=== PATIENT | female | born 1990 | race Caucasian/White ===

== ENCOUNTER → 2019-08-03 | Outpatient (CLI) | payer MEDICAID ==
--- NOTE | 2019-08-03 11:58 | Diagnostic Imaging Report ---
INDICATION: survey. TECHNIQUE: Multiple real-time grayscale images were obtained over the gravid uterus. COMPARISON: None. FINDINGS: There is a single live fetus in a breech presentation. heart rate was recorded at 132 BPM. Placenta is posterior. Amniotic fluid index is 14.5 cm. survey demonstrates kidneys, bladder, and stomach to be unremarkable. brain is unremarkable. There is a four-chamber heart. There is a three-vessel cord with normal insertion. spine is unremarkable. Biometrical measurements are as follows: Biparietal 5.25 cm, age 20 weeks 0 days. Head circumference 19.68 cm, age 22 weeks 2 days. Abdominal circumference 16.23 cm, age 21 weeks 3 days. Femur length 3.63 cm, age 21 weeks 4 days. Sonographic estimate age: 21 weeks 6 days. Sonographic estimated date of delivery: 12/08/2019. Estimated Weight: 427 gm (+/- 62 gm). LMP percentile: 89%. heart rate: 132 beats per minute. number: 1 of 1. IMPRESSION: Single live IUP at 21 weeks 6 days gestational age. The estimated date of confinement sonographically is 12/08/2019. Dictated by: Dictated on workstation # [id number]
== END ==
LOC: RAD 10:03
PROVIDERS: ATTEND Nurse Practitioner Women's Health
DX: Z34.92 Encounter for supervision of normal pregnancy, unspecified, second trimester (principal); Z3A.21 21 weeks gestation of pregnancy
CPT/HCPCS: 76805

== ENCOUNTER 2019-11-25 11:45 | Inpatient (IN) | payer MEDICAID ==
[~2019-11-25] VITALS: Ht 165.1 cm; Wt 88.9 kg
[2019-11-25] VITALS (13 sets, daily range): BP systolic 117–135; BP diastolic 61–90
--- NOTE | 2019-11-25 12:05 | NUR ---
OCTAVIANO QUINTANA presented to unit via AMBULATORY, accompanied by MOTHER IN LAW, FOR INDUCTION OF LABOR DUE TO PRE-ECLAMPSIA. OCTAVIANO QUINTANA weighed, gowned, voided, and to bed. EFHM and TOCO applied, VS taken. OCTAVIANO QUINTANA oriented to bed controls, call light, TV, heat, and A/C controls.
[2019-11-25] MEDS ORDERED: D5 LR IV SOLUTION 1,000 ML IV ONE (12:27)
[2019-11-25] MEDS ORDERED: MINERAL OIL CONCENTRATE 99.9% 15 ML UDC TOP PRN (12:45)
[2019-11-25] MEDS: D5 LR IV SOLUTION 1,000 ML IV SCH ×2 (12:45→20:30)
--- NOTE | 2019-11-25 13:25 | History & Physical-OB ---
OB - Chief Complaint & HPI Date/Time Date of Admission: Date of Admission: Nov 25, 2019 at 11:45 Date seen by a Provider: Nov 25, 2019 Time Seen by a Provider: 13:21 Chief Complaint/History OB-Reason for Admission/Chief: Induction of Labor (1) Hx : 1 Hx Para: 0 Expected Date of Delivery: Nov 27, 2019 Gestational Age in Weeks: 37 Gestational Age in Days: 4 Indication for induction: medical complication Other reason for admission: Patient seen yesterday in office 3 lbs weight gain in one week, and BP 150/100. Urine protein/cr ratio came back .6 today. Patient notified recommendation for delivery due to preE. Admission Nurse Assessment Rev: Yes History of Labs A neg Antibody neg RI RPR NR HBsAg nR HIV NR GC (pos) but test of cure was neg 2 months later GBS neg Allergies and Home Medications Allergies Coded Allergies: No Known Drug Allergies (Unverified , 11/25/19) Patient Home Medication List Home Medication List Reviewed: Yes OB - History Hx of Present Care: Yes Ultrasounds: Normal mid trimester US Obstetrical Complications: None Medical Complications: None Patient Past Medical History n/a OB - Admission Exam Physical Exam HEENT: NCAT Heart: Rhythm Normal Lungs: Clear Abdomen: Gravid Extremities: Normal Reflexes: Normal Cervical Dilatation: 1cm Effacement: 75% Station: -1 Membranes: Intact Heart Rate: 130's Accelerations: Accelerations Present Decelerations: No Decelerations Short Term Variability: Present Radar Technician Variability: Average (6-25) Contractions on Admission: 6-10 Minutes Apart Intensity: Mild OB - Assessment/Plan/Diagnosis Assessment Assessment: induction of labor Admission Dx 28 yo @ 37.4 weeks Mild Preeclampsia GBS neg Admission Status: Inpatient Order (span 2 midnights) Reason for Inpatient Admission: Induction of labor at term Plan Plan: Induction Induction Method: per Misoprostol Protocol ANNEMARIE DALAL DO Nov 25, 2019 13:25
[2019-11-25] MEDS ORDERED: MISOPROSTOL 100 MCG (CYTOTEC) TAB PO ONE ×2 (13:30→16:00)
[2019-11-25 13:49] LABS: BASOPHILS % (AUTO) 0 % (0-10); EOSINOPHILS # (AUTO) 0.2 10^3/uL (0.0-0.3); EOSINOPHILS % (AUTO) 2 % (0-10); HEMATOCRIT 36 % (35-52); HEMOGLOBIN 12.5 G/DL (11.5-16.0); LYMPHOCYTES # (AUTO) 1.2 X 10^3 (1.0-4.0); LYMPHOCYTES % (AUTO) 14 % (12-44); MEAN CORPUSCULAR HEMOGLOBIN 33 PG (25-34); MEAN CORPUSCULAR HGB CONC 35 G/DL (32-36); MEAN CORPUSCULAR VOLUME 94 FL (80-99); MEAN PLATELET VOLUME 12.1 FL (7.4-10.4); MONOCYTES # (AUTO) 1.1 X 10^3 (0.0-1.0); MONOCYTES % (AUTO) 12 % (0-12); NEUTROPHILS # (AUTO) 6.4 X 10^3 (1.8-7.8); NEUTROPHILS % (AUTO) 72 % (42-75); PLATELET COUNT 178 10^3/uL (130-400); RED CELL DISTRIBUTION WIDTH 12.3 % (10.0-14.5); WHITE BLOOD COUNT 8.9 10^3/uL (4.3-11.0)
--- NOTE | 2019-11-25 16:07 | NUR ---
THIS RN TALKS TO DR DALAL, GIVEN UPDATE ON PT STATUS. PT CO DAVIDMPING, VSS. DR DALAL WANTS THIS RN TO ADMIN 2ND DOSE OF CYTOTEC WITHOUT SVE UNLESS ABSOLUTELY NECESSARY.
--- NOTE | 2019-11-25 19:05 | NUR ---
full pt report given to guilherme holly at this time
[2019-11-25] MEDS ORDERED: MISOPROSTOL 100 MCG (CYTOTEC) TAB ONE (21:52)
[2019-11-25] MEDS: MISOPROSTOL 100 MCG (CYTOTEC) TAB PO SCH (21:56)
[2019-11-25] MEDS ORDERED: TERBUTALINE INJ 1 MG/ML (BRETHINE) AMP SC PRN (22:00)
[2019-11-26] VITALS (62 sets, daily range): BP systolic 98–221; BP diastolic 61–119
[2019-11-26] MEDS: MISOPROSTOL 100 MCG (CYTOTEC) TAB PO SCH ×2 (01:51→05:41)
[2019-11-26] MEDS: D5 LR IV SOLUTION 1,000 ML IV SCH ×2 (05:42→12:16)
[2019-11-26] MEDS ORDERED: OXYTOCIN PRE-MIX DRIP 500 ML IV SCH ×2 (07:50→16:20)
[2019-11-26] MEDS ORDERED: OXYTOCIN PRE-MIX DRIP 500 ML IV ONE (08:08)
[2019-11-26] MEDS ORDERED: fentaNYL 2 mcg/ml BUPIVA 0.125 100 ML ONE (09:52)
[2019-11-26] MEDS ORDERED: ONDANSETRON 4 MG/2 ML (SDV) Z0FRAN ONE (10:56)
--- NOTE | 2019-11-26 11:12 | NUR ---
1112 Jude ALLEN CRNA here for epidural placement. Procedure explained, consent reviewed and signed by anesthesia. Questions answered to patient's satisfaction. Time out taken to verify correct patient/procedure. 1119 Patient up to side of bed, assisted into sitting position. 1122 Betadine prep done x3 and sterile drape applied. 1124 Local done, see anesthesia record. 1127 Test dose given, see anesthesia record for drug and dosage. 1128 Test dose #2 given, see anesthesia record for drug and dosage. Epidural catheter secured in place. Epidural placement complete. 1131 Assisted back into bed, monitors adjusted. Epidural dosed, see anesthesia record. Epidural infusing @ 12 cc/hr stated per pump; see EMAR for further. Patient tolerated procedure well.
[2019-11-26] MEDS ORDERED: fentaNYL INJECTION 100 MCG/2 ML AMP ONE (11:34)
[2019-11-26] MEDS ORDERED: LIDOCAINE PF 2% 5 ML (XYLOCAINE) VIAL ONE ×2 (15:11)
[2019-11-26] MEDS ORDERED: HYDROcodone/APAP 5 MG/325 MG (LORTAB) TAB PO PRN (16:30)
[2019-11-26] MEDS ORDERED: TETANUS,DIPTH,PERTUSS P/F (BOOSTRIX) 0.5 ML VIAL IM ONE (16:30)
[2019-11-26] MEDS ORDERED: MEASLES,MUMPS,RUBELLA 1 EA INJ SQ ONE (16:30)
[2019-11-26] MEDS ORDERED: WITCH HAZEL(TUCKS) 40 EA JAR TOP PRN (16:30)
[2019-11-26] MEDS ORDERED: DIBUCAINE (NUPERCAINAL) 1% OINT 30 GM TOP PRN (16:30)
[2019-11-26] MEDS ORDERED: BENZOCAINE/MENTHOL (DERMOPLAST) 60 ML CAN TP PRN (16:30)
--- NOTE | 2019-11-26 16:47 | OB Labor & Delivery Record ---
L&D History Date of Service Date of Service: Nov 26, 2019 History Expected Date of Delivery: Dec 12, 2019 Gestational Age in Weeks: 37 Hx : 1 Hx Para: 0 Complications Events: Pre-Eclampsia Operative Indications (Cesarea: N/A-Vaginal Delivery Intrapartal Events: None L&D Stage1 Stage One Onset of Labor - Date: Nov 26, 2019 Monitors and Tracing Monitor Mode: External Heart Rate: 145 Monitor Accelerations: Uniform Monitor Decelerations: None Conductor Sleeping Car Variability: Moderate (11-25) Short Term Variability: Present Presentation: Vertex Vital Signs VS - Last 72 Hours, by Label 11/25/19 11/25/19 11/25/19 11/25/19 12:25 12:25 13:30 14:00 Temp 37.3 37.3 Pulse 97 97 88 98 Resp 16 16 B/P (MAP) 127/83 (98) 135/84 (101) 127/86 (100) Pulse Ox 96 96 O2 Delivery Room Air Room Air Room Air Room Air 11/25/19 11/25/19 11/25/19 11/25/19 15:00 15:30 16:00 17:00 Temp 37.2 Pulse 90 84 82 76 Resp 16 B/P (MAP) 121/83 (96) 135/75 (95) 134/90 (105) 117/77 (90) O2 Delivery Room Air Room Air Room Air Room Air 11/25/19 11/25/19 11/25/19 11/25/19 17:30 18:00 19:00 20:00 Temp 37.1 37.2 Pulse 82 82 83 82 Resp 18 B/P (MAP) 120/82 (95) 133/90 (104) 122/61 (81) 132/88 (103) Pulse Ox 96 O2 Delivery Room Air Room Air Room Air Room Air 11/25/19 11/25/19 11/25/19 11/26/19 21:00 22:00 23:00 00:00 Temp 37.0 Pulse 82 90 75 72 Resp 18 18 18 18 B/P (MAP) 128/89 (102) 127/81 (96) 118/70 (86) Pulse Ox 97 98 98 98 O2 Delivery Room Air Room Air Room Air Room Air 11/26/19 11/26/19 11/26/19 11/26/19 01:00 02:00 03:00 04:00 Pulse 68 75 76 71 Resp 18 18 18 18 B/P (MAP) 113/72 (86) 111/76 (88) 112/72 (85) 104/68 (80) Pulse Ox 95 96 99 97 O2 Delivery Room Air Room Air Room Air Room Air 11/26/19 11/26/19 11/26/19 11/26/19 05:00 06:00 07:00 08:16 Temp 36.8 Pulse 75 82 82 Resp 18 18 18 B/P (MAP) 104/67 (79) 114/77 (89) 104/67 (79) Pulse Ox 97 99 99 O2 Delivery Room Air Room Air Room Air 11/26/19 11/26/19 11/26/19 11/26/19 08:33 08:49 09:04 09:19 Pulse 88 88 87 76 Resp 18 18 18 18 B/P (MAP) 124/85 (98) 138/94 (109) 147/94 (111) 135/89 (104) Pulse Ox 97 98 98 98 O2 Delivery Room Air Room Air Room Air Room Air 11/26/19 11/26/19 11/26/19 11/26/19 09:26 09:35 10:18 11:20 Temp 37.1 Pulse 78 78 72 Resp 20 20 20 B/P (MAP) 144/103 (117) 132/90 (104) 125/99 (108) Pulse Ox 98 92 99 O2 Delivery Room Air Room Air Room Air 11/26/19 11/26/19 11/26/19 11/26/19 11:25 11:28 11:34 11:38 Temp 37.2 Pulse 69 71 85 90 Resp 20 20 20 20 B/P (MAP) 136/90 (105) 128/80 (96) 122/80 (94) 111/71 (84) Pulse Ox 99 98 94 O2 Delivery Room Air Room Air Room Air Room Air 11/26/19 11/26/19 11/26/19 11/26/19 11:40 11:44 11:47 11:50 Pulse 81 95 89 88 Resp 20 18 18 18 B/P (MAP) 110/70 (83) 108/69 (82) 105/69 (81) 110/72 (85) Pulse Ox 95 94 97 O2 Delivery Room Air Room Air Room Air Room Air 11/26/19 11/26/19 11/26/19 11/26/19 11:53 11:55 11:59 12:17 Temp 36.4 Pulse 85 80 87 67 Resp 18 18 18 18 B/P (MAP) 99/66 (77) 103/72 (82) 109/64 (79) 104/70 (81) Pulse Ox 96 94 96 O2 Delivery Room Air Room Air Room Air Room Air 11/26/19 11/26/19 11/26/19 11/26/19 12:30 12:33 12:46 13:15 Temp 36.3 Pulse 81 69 65 Resp 18 18 18 B/P (MAP) 98/78 (85) 122/73 (89) 120/76 (91) Pulse Ox 99 95 97 O2 Delivery Room Air Room Air Room Air 11/26/19 11/26/19 11/26/19 11/26/19 13:33 13:34 13:47 14:01 Temp 36.3 Pulse 67 70 96 Resp 18 18 18 B/P (MAP) 130/80 (97) 129/83 (98) 150/97 (114) Pulse Ox 99 98 98 O2 Delivery Room Air Room Air Room Air 11/26/19 11/26/19 11/26/19 11/26/19 14:04 14:06 14:07 14:13 Temp 37.1 Pulse 123 88 95 Resp 18 18 18 B/P (MAP) 154/106 (122) 142/93 (109) 208/83 (124) Pulse Ox 98 98 O2 Delivery Room Air Room Air Room Air 11/26/19 14:18 Pulse 84 Resp 18 B/P (MAP) 163/104 (123) Pulse Ox 98 O2 Delivery Room Air Rupture of Membranes Spontaneous Ruture of Membrane: No Amniotic Membrane Rupture Time: 0746 Amniotic Membrane Fluid Desc.: Clear Vaginal Bleeding Description: Normal Show Induction/Anesthesia Epidural Cath Placement - Time: 1126 Progress/Notes Patient admitted and initially was unfavorabl Marley score. She was given PO misoprostol overnight, and AROM was performed this AM. This was followed by pitocin augmentation due to dysfunctional contraction pattern. She progressed after having an epidural to complete and + 1 station when she felt an urge to push. L&D Stage2 Stage Two Stage II Date: Nov 26, 2019 Monitors and Tracing Monitor Mode: External Heart Rate: 145 Monitor Accelerations: Uniform Monitor Decelerations: Early Fci Variability: Average (6-10) Short Term Variability: Present Position: Right Occiput Anterior Presentation: Vertex Cord Descript/Complications Cord Vessel Description: 3 Vessels Delivery Type Infant Delivery Method: Spontaneous Vaginal Anterior Shoulder: Left Episiotomy/Perineal Laceration Laceraction(s)/Extensions: Yes Episiotomy Description: Vaginal Extension/lac, 2nd degree Degree (describe repair) bilateral periurethral lacerations noted, with a right vaginal side wall laceration extending to the right periurethral. All were repaired using 3-0 rapide vicryl suture in usual fashion. Condition of Delivery 1 minute Comment: 8 5 minute Comment: 9 Notes Live male infant weight pending Condition of Infant Condition of Infant: Living Exam: No Observed Abnormalities Resuscitation Resuscitation: N/A - Spontaneous Resp L&D Stage3 Stage Three Stage III Date: Nov 26, 2019 Pictocin Pitocin Administration Comment: 30 mu wide open at delivery of placenta Placenta Delivery Placenta Delivery: Spontaneous Delivery Summary Summary Estimated blood loss (mL): 400 Attending at delivery: Annemarie Dalal DO Condition of Delivery Examined: Cervix Examined, Uterus Explored Post Hemorrhage: No Condition of Mother stable Condition of (s) stable ANNEMARIE DALAL DO Nov 26, 2019 16:47
[2019-11-26] MEDS ORDERED: HYDR-83 PO (16:50)
[2019-11-26] MEDS ORDERED: IBUP-844 PO (16:50)
[2019-11-26] MEDS ORDERED: BENZ78AE2 TP (16:50)
[2019-11-26] MEDS ORDERED: DCS100C PO (16:50)
[2019-11-26] MEDS ORDERED: LACTATED RINGERS 1,000 ML IV ONE (17:09)
[2019-11-26] MEDS ORDERED: fentaNYL 2 mcg/ml BUPIVA 0.125 100 ML IV SCH (17:09)
[2019-11-26] MEDS ORDERED: ONDANSETRON 4 MG/2 ML (SDV) Z0FRAN IV PRN (17:15)
[2019-11-26] MEDS ORDERED: CATHETER FLUSH 10 ML SYR IV PRN (17:15)
[2019-11-26] MEDS ORDERED: fentaNYL INJECTION 100 MCG/2 ML AMP INJ ONE (17:15)
[2019-11-26] MEDS ORDERED: EPIDURAL (fentaNYL 2 MCG/ML BUPIVA 0.125%)100 ML BAG EPI SCH (17:15)
[2019-11-26] MEDS ORDERED: NALOXONE 0.4 MG/ML 1 ML (NARCAN) VIAL IV PRN (17:15)
[2019-11-26] MEDS: IBUPROFEN 600 MG (MOTRIN) TAB PO SCH (18:49)
--- NOTE | 2019-11-26 18:58 | NUR ---
REFER TO LABOR FLOW SHEET.
--- NOTE | 2019-11-26 19:30 | NUR ---
Pt up standby to bathroom, first void since delivery, pericare pads changed, pt ambulatory to pp unit room 309. Oriented to call system and surroundings, info packet. Denies needs or concerns. vss will cont to monitor.
[2019-11-26] MEDS ORDERED: DOCUSATE SODIUM 100 MG (COLACE) CAP PO SCH (21:00)
[2019-11-26] MEDS ORDERED: CATHETER FLUSH 10 ML SYR IV SCH (22:00)
[2019-11-27 02:32] VITALS: BP 121/58
[2019-11-27] MEDS: IBUPROFEN 600 MG (MOTRIN) TAB PO SCH ×3 (02:33→14:44)
[2019-11-27 04:38] LABS: BASOPHILS % (AUTO) 0 % (0-10); EOSINOPHILS # (AUTO) 0.2 10^3/uL (0.0-0.3); EOSINOPHILS % (AUTO) 2 % (0-10); HEMATOCRIT 30 % (35-52); HEMOGLOBIN 10.2 G/DL (11.5-16.0); LYMPHOCYTES # (AUTO) 1.8 X 10^3 (1.0-4.0); LYMPHOCYTES % (AUTO) 16 % (12-44); MEAN CORPUSCULAR HEMOGLOBIN 33 PG (25-34); MEAN CORPUSCULAR HGB CONC 34 G/DL (32-36); MEAN CORPUSCULAR VOLUME 96 FL (80-99); MEAN PLATELET VOLUME 11.7 FL (7.4-10.4); MONOCYTES # (AUTO) 1.2 X 10^3 (0.0-1.0); MONOCYTES % (AUTO) 11 % (0-12); NEUTROPHILS % (AUTO) 71 % (42-75); PLATELET COUNT 155 10^3/uL (130-400); RED CELL DISTRIBUTION WIDTH 12.2 % (10.0-14.5); WHITE BLOOD COUNT 11.2 10^3/uL (4.3-11.0)
[2019-11-27 06:20] VITALS: BP 130/85
[2019-11-27] MEDS ORDERED: PRENATAL VITAMIN 1 EA TAB PO SCH (07:00)
[2019-11-27 08:34] VITALS: BP 130/83
--- NOTE | 2019-11-27 08:40 | NUR ---
PT IN BED. MIL @ BEDSIDE, HOLDING INFANT. VS OBTAINED. MEDS GIVEN PO; SEE EMAR FOR FURTHER. INITIAL SHIFT ASSESSMENT COMPLETED; SEE INTERVENTION FOR FURTHER. SHOWER SET UP, FRESH ICE WATER PROVIDED. POC REVIEWED, NO NEEDS OR QUESTIONS VOICED. CALL LIGHT WITHIN REACH.
[2019-11-27] MEDS ORDERED: FERROUS SULF 325 MG (IRON) TAB PO SCH (09:00)
--- NOTE | 2019-11-27 09:58 | Postpartum Progress Note ---
Note Note Day # 1 Subjective: Patient is without complaints. Ambulating, voiding. Tolerating a regular diet without nausea or vomiting. Normal lochia. Pain is well controlled with oral pain medications. Objective: Physical Exam: General - Alert and oriented, no apparent distress Abdomen - Soft, appropriately tender to palpation, non-distended, fundus firm at umbilicus Extremities - no edema, negative Markos's bilaterally Assessment: PPD 1 NVD Mild PreE - bp now stabilized Plan: Routine care. Encourage breast feeding. Encourage ambulation. Ferrous sulfate supplementation. Plan for discharge today Vitals - Labs Vital Signs - I&O Vital Signs Date Time Temp Pulse Resp B/P (MAP) Pulse Ox O2 Delivery O2 Flow Rate FiO2 11/27/19 08:34 36.4 86 18 130/83 (99) 97 Room Air 11/27/19 06:20 36.3 83 18 130/85 (100) 98 Room Air 11/27/19 02:32 36.6 82 18 121/58 (79) 96 Room Air 11/26/19 19:30 37.0 96 18 125/81 (96) 97 Room Air 11/26/19 18:44 90 18 117/75 (89) Room Air 11/26/19 18:14 37.0 97 18 124/78 (93) Room Air 11/26/19 17:40 90 18 118/69 (85) Room Air 11/26/19 17:25 36.8 99 18 117/61 (79) Room Air 11/26/19 17:10 90 18 115/64 (81) Room Air 11/26/19 16:55 37.1 99 18 134/81 (98) Room Air 11/26/19 16:40 88 18 117/74 (88) Room Air 11/26/19 16:25 37.1 97 18 135/85 (102) Room Air 11/26/19 16:12 37.4 104 18 131/71 (91) Room Air 11/26/19 15:25 129 20 152/90 (110) Room Air 11/26/19 15:22 95 20 146/77 (100) 97 Room Air 11/26/19 15:19 83 20 150/75 (100) 97 Room Air 11/26/19 15:14 37.5 93 20 167/82 (110) 96 Room Air 11/26/19 14:57 76 20 114/88 (97) Room Air 11/26/19 14:55 79 20 125/81 (96) 99 Room Air 11/26/19 14:52 93 20 129/85 (100) Room Air 11/26/19 14:50 97 20 151/81 (104) 94 Room Air 11/26/19 14:43 94 20 152/119 (130) 91 Room Air 11/26/19 14:40 84 18 156/72 (100) 99 Room Air 11/26/19 14:37 91 18 151/91 (111) 93 Room Air 11/26/19 14:34 91 18 146/80 (102) 98 Room Air 11/26/19 14:31 86 18 147/93 (111) 98 Room Air 11/26/19 14:25 111 18 221/92 (135) 98 Room Air 11/26/19 14:22 91 18 193/91 (125) 91 Room Air 11/26/19 14:18 84 18 163/104 (123) 98 Room Air 11/26/19 14:13 95 18 208/83 (124) 98 Room Air 11/26/19 14:07 88 18 142/93 (109) Room Air 11/26/19 14:06 37.1 11/26/19 14:04 123 18 154/106 (122) 98 Room Air 11/26/19 14:01 96 18 150/97 (114) 98 Room Air 11/26/19 13:47 70 18 129/83 (98) 98 Room Air 11/26/19 13:34 36.3 11/26/19 13:33 67 18 130/80 (97) 99 Room Air 11/26/19 13:15 65 18 120/76 (91) 97 Room Air 11/26/19 12:46 69 18 122/73 (89) 95 Room Air 11/26/19 12:33 36.3 11/26/19 12:30 81 18 98/78 (85) 99 Room Air 11/26/19 12:17 67 18 104/70 (81) 96 Room Air 11/26/19 11:59 36.4 87 18 109/64 (79) 94 Room Air 11/26/19 11:55 80 18 103/72 (82) 96 Room Air 11/26/19 11:53 85 18 99/66 (77) Room Air 11/26/19 11:50 88 18 110/72 (85) 97 Room Air 11/26/19 11:47 89 18 105/69 (81) Room Air 11/26/19 11:44 95 18 108/69 (82) 94 Room Air 11/26/19 11:40 81 20 110/70 (83) 95 Room Air 11/26/19 11:38 90 20 111/71 (84) Room Air 11/26/19 11:34 37.2 85 20 122/80 (94) 94 Room Air 11/26/19 11:28 71 20 128/80 (96) 98 Room Air 11/26/19 11:25 69 20 136/90 (105) 99 Room Air 11/26/19 11:20 72 20 125/99 (108) 99 Room Air 11/26/19 10:18 78 20 132/90 (104) 92 Room Air I & O 11/27/19 07:00 Intake Total 1000 ml Balance 1000 ml Labs Laboratory Tests 11/27/19 04:20: White Blood Count 11.2H, Red Blood Count 3.12L, Hemoglobin 10.2L, Hematocrit 30L , Mean Corpuscular Volume 96, Mean Corpuscular Hemoglobin 33, Mean Corpuscular Hemoglobin Concent 34, Red Cell Distribution Width 12.2, Platelet Count 155, Mean Platelet Volume 11.7H, Neutrophils (%) (Auto) 71, Lymphocytes (%) (Auto) 16, Monocytes (%) (Auto) 11, Eosinophils (%) (Auto) 2, Basophils (%) (Auto) 0, Neutrophils # (Auto) 8.0H, Lymphocytes # (Auto) 1.8, Monocytes # (Auto) 1.2H, Eosinophils # (Auto) 0.2, Basophils # (Auto) 0.0 ANNEMARIE DALAL DO Nov 27, 2019 09:58
--- NOTE | 2019-11-27 10:09 | NUR ---
DR. DALAL TO PT'S BEDSIDE.
--- NOTE | 2019-11-27 11:30 | NUR ---
Anil MEREDITH, WATER PUMPER HERE FOR POST-OP ROUNDS.
--- NOTE | 2019-11-27 11:34 | Anesthesia-Regional Post-Op ---
Regional Patient Condition Mental Status: Alert, Oriented x3 Circulation: Same as Pre-Op Headache: Absent Sensation: Full Recovery Motor Block: Absent Post Op Complications Complications None Follow Up Care/Instructions Patient Instructions None needed. Anesthesia/Patient Condition Patient is doing well, no complaints, stable vital signs, no apparent adverse anesthesia problems. No complications reported per nursing. ELE MEREDITH CRNA Nov 27, 2019 11:34
[2019-11-27 12:20] VITALS: BP 117/85
--- NOTE | 2019-11-27 12:25 | NUR ---
PT IN BED, HOLDING . VS OBTAINED. CERTIFICATE PAPERWORK PROVIDED TO BE FILLED OUT. NO NEEDS OR QUESTIONS VOICED. CALL LIGHT WITHIN REACH.
--- NOTE | 2019-11-27 14:48 | NUR ---
PT BACK TO BED FROM BATHROOM, PREPPING TO BREASTFEED . ROUTINE MOTRIN GIVEN PO; SEE EMAR FOR FURTHER. WILL REVIEW DISCHARGE PAPERS AFTER FEEDING. NO NEEDS VOICED AT THIS TIME. CALL LIGHT WITHIN REACH.
[2019-11-27 15:51] VITALS: BP 143/80
--- NOTE | 2019-11-27 16:04 | NUR ---
DISCHARGE PAPERS PROVIDED AND REVIEWED WITH PT, PT VERBALIZES UNDERSTANDING, QUESTIONS ANSWERED. PAPER SIGNED. PRESCRIPTIONS AND BREAST PUMP RX ALSO PROVIDED AND PLACED INTO DISCHARGE FOLDER.
--- NOTE | 2019-11-27 18:10 | NUR ---
PT DISCHARGED FROM -309 TO PERSONAL AUTO VIA W/C IN STABLE CONDITION ACC BY THIS RN, S/O AND INFANT.
== END 2019-11-27 18:10 | disposition home or self-care (01) | DRG 807 ==
LOC: LDRP 11:45
PROVIDERS: ADMIT Obstetrics & Gynecology; ATTEND Obstetrics & Gynecology
PROC: 10E0XZZ Delivery of Products of Conception, External Approach (ICD-10-PCS; principal; 2019-11-26)
PROC: 0KQM0ZZ Repair Perineum Muscle, Open Approach (ICD-10-PCS; 2019-11-26)
DX: O14.04 Mild to moderate pre-eclampsia, complicating childbirth (principal); Z37.0 Single live birth; O70.1 Second degree perineal laceration during delivery; Z3A.37 37 weeks gestation of pregnancy
CPT/HCPCS: 36415; 85025; 86850; 86900; 86901

== ENCOUNTER → 2021-02-28 | Outpatient (CLI) | payer MEDICAID ==
[~2021-02-28] MED LIST: ACHD5005 PO; BENZ78AE5 TP; DOCU-239 PO; IBUP-844 PO
--- NOTE | 2021-02-28 17:52 | Diagnostic Imaging Report ---
INDICATION: anatomy survey. TECHNIQUE: Multiple real-time grayscale images were obtained over the gravid uterus. COMPARISON: None. FINDINGS: Cervix measures 5.8 cm. Fetus is in transverse lie. The placenta is posteriorly positioned and is normal in echogenicity and thickness. No previa is noted. The amount of amniotic fluid appears visually appropriate. Maternal adnexa are not well visualized due to advanced gestational age. The following anatomy is visualized and normal: Stomach, four-chamber heart, right ventricular outflow tract, umbilical cord insertion, urinary bladder, three-vessel cord, kidneys, cerebellum, cisterna magna, cerebral ventricles, spine, left ventricular outflow tract, and lip/nose. Biometrical measurements are as follows: Biparietal 4.35 cm, age 19 weeks 2 days. Head circumference 16.8 cm, age 19 weeks 4 days. Abdominal circumference 14.1 cm, age 19 weeks 4 days. Femur length 3.26 cm, age 20 weeks 2 days. Sonographic estimate age: 19 weeks 5 days. Sonographic estimated date of delivery: 07/20/21. Estimated Weight: 311 gm (+/- 45 gm). LMP percentile: 25%. heart rate: 156 beats per minute. number: 1 of 1. IMPRESSION: 1. Single live intrauterine with normal anatomy survey. Dictated by: Dictated on workstation # [id number]
== END ==
LOC: RAD 09:22
PROVIDERS: ATTEND Nurse Practitioner Women's Health
DX: Z34.02 Encounter for supervision of normal first pregnancy, second trimester (principal); Z3A.19 19 weeks gestation of pregnancy
CPT/HCPCS: 76805

== ENCOUNTER → 2021-06-18 | Outpatient (CLI) | payer OTHER, MEDICAID ==
[2021-06-18 12:08] LABS: URINE CREATININE FOR RATIO 10 MG/DL (30-125)
[2021-06-18 12:09] LABS: URINE PROTEIN FOR RATIO ONLY < 6 MG/DL (6-12)
== END ==
LOC: LABNPT 11:45
PROVIDERS: ATTEND Obstetrics & Gynecology
DX: O13.9 Gestational [pregnancy-induced] hypertension without significant proteinuria, unspecified trimester (principal); Z3A.00 Weeks of gestation of pregnancy not specified
CPT/HCPCS: 82570; 84156

== ENCOUNTER → 2021-06-25 | Outpatient (CLI) | payer BC, MEDICAID ==
[2021-06-25 16:36] LABS: URINE CREATININE FOR RATIO 55 MG/DL (30-125)
[2021-06-25 16:37] LABS: URINE PROTEIN FOR RATIO ONLY < 6 MG/DL (6-12)
== END ==
LOC: LABNPT 16:07
PROVIDERS: ATTEND Obstetrics & Gynecology
DX: O13.9 Gestational [pregnancy-induced] hypertension without significant proteinuria, unspecified trimester (principal)
CPT/HCPCS: 82570; 84156

== ENCOUNTER 2021-07-02 17:04 | Inpatient (IN) | payer BC, MEDICAID ==
[~2021-07-02] VITALS: Ht 167 cm; Wt 92.6 kg
[2021-07-02] VITALS (7 sets, daily range): BP systolic 91–133; BP diastolic 50–82
[2021-07-02] MEDS ORDERED: LACTATED RINGERS 1,000 ML IV SCH (18:15)
[2021-07-02] MEDS ORDERED: TERBUTALINE INJ 1 MG/ML (BRETHINE) AMP SC PRN (18:15)
[2021-07-02] MEDS ORDERED: LACTATED RINGERS 1,000 ML IV ONE (18:22)
[2021-07-02 18:25] LABS: BASOPHILS % (AUTO) 0 % (0-10); EOSINOPHILS # (AUTO) 0.1 10^3/uL (0.0-0.3); EOSINOPHILS % (AUTO) 1 % (0-10); HEMATOCRIT 38 % (35-52); HEMOGLOBIN 13.1 g/dL (11.5-16.0); LYMPHOCYTES # (AUTO) 1.7 10^3/uL (1.0-4.0); LYMPHOCYTES % (AUTO) 15 % (12-44); MEAN CORPUSCULAR HEMOGLOBIN 32 pg (25-34); MEAN CORPUSCULAR HGB CONC 35 g/dL (32-36); MEAN CORPUSCULAR VOLUME 93 fL (80-99); MEAN PLATELET VOLUME 11.5 fL (9.0-12.2); MONOCYTES % (AUTO) 9 % (0-12); NEUTROPHILS % (AUTO) 73 % (42-75); PLATELET COUNT 217 10^3/uL (130-400); WHITE BLOOD COUNT 10.9 10^3/uL (4.3-11.0)
[2021-07-02 18:26] LABS: BILIRUBIN,URINE NEGATIVE (NEGATIVE); CLARITY,URINE CLEAR; COLOR,URINE YELLOW; GLUCOSE, URINE (UA) NEGATIVE (NEGATIVE); KETONES,URINE NEGATIVE (NEGATIVE); LEUKOCYTE ESTERASE ,URINE NEGATIVE (NEGATIVE); NITRITE,URINE NEGATIVE (NEGATIVE); PROTEIN,URINE NEGATIVE (NEGATIVE)
[2021-07-02 18:29] LABS: ALBUMIN 3.5 GM/DL (3.2-4.5)
[2021-07-02 18:30] LABS: POTASSIUM 3.7 MMOL/L (3.6-5.0)
[2021-07-02 18:32] LABS: TOTAL PROTEIN 7.3 GM/DL (6.4-8.2)
[2021-07-02 18:34] LABS: BILIRUBIN,TOTAL 0.3 MG/DL (0.1-1.0)
[2021-07-02 18:36] LABS: CREATININE SERUM 0.65 MG/DL (0.60-1.30)
[2021-07-02 18:38] LABS: URIC ACID 4.2 MG/DL (2.6-7.2)
[2021-07-02 18:39] LABS: BACTERIA,URINE MODERATE /HPF
[2021-07-02] MEDS: D5 LR IV SOLUTION 1,000 ML IV SCH (19:31)
[2021-07-03] VITALS (46 sets, daily range): BP systolic 95–187; BP diastolic 51–97
[2021-07-03] MEDS: D5 LR IV SOLUTION 1,000 ML IV SCH ×2 (04:00→10:37)
[2021-07-03] MEDS: CATHETER FLUSH 10 ML SYR IV SCH ×2 (08:08→08:09)
[2021-07-03] MEDS ORDERED: OXYTOCIN PRE-MIX DRIP 500 ML IV ONE (08:10)
[2021-07-03] MEDS ORDERED: OXYTOCIN PRE-MIX DRIP 500 ML IV SCH ×2 (08:15→14:15)
--- NOTE | 2021-07-03 08:25 | History & Physical-OB ---
OB - Chief Complaint & HPI Date/Time Date of Admission: Date of Admission: Jul 02, 2021 at 17:04 Date seen by a Provider: Jul 03, 2021 Time Seen by a Provider: 08:15 Chief Complaint/History OB-Reason for Admission/Chief: Induction of Labor Hx : 2 Hx Para: 1 Expected Date of Delivery: Jul 15, 2021 Gestational Age in Weeks: 38 Gestational Age in Days: 0 Other reason for admission: GHTN, Headache and Oligohydramnios on office US yesterday Admission Nurse Assessment Rev: Yes History of Labs A neg Antibody neg RI RPR NR HBsAg NR HIV NR GC neg GBS neg Allergies and Home Medications Allergies Coded Allergies: No Known Drug Allergies (Unverified , 11/25/19) Patient Home Medication List Home Medication List Reviewed: Yes Benzocaine/Menthol (Dermoplast Pain Relieving [place]) 78 Gm Aerosol, 56 ML TP UD PRN for PAIN- SEE INSTRUCTIONS Prescribed by: ANNEMARIE DALAL on 11/26/191649 Docusate Sodium (Dok) 100 Mg Capsule, 100 MG PO BID PRN for CONSTIPATION-1ST LINE Prescribed by: ANNEMARIE DALAL on 11/26/191649 Hydrocodone/Acetaminophen (Hydrocodone-Acetamin 5-325 mg) 1 Each Tablet, 1 TAB PO Q4HR PRN for PAIN-MODERATE (5-7) Prescribed by: ANNEMARIE DALAL on 11/26/191649 Ibuprofen (Ibu) 600 Mg Tablet, 600 MG PO Q6HR Prescribed by: ANNEMARIE DALAL on 11/26/191649 OB - History Hx of Present Care: Yes Ultrasounds: Abnormal US findings (Oligohydramnios noted on 37.6 week US done yesterday for GHTN) Obstetrical Complications: Gestational Hypertension Medical Complications: None Delivery History Adverse Rxn to Tranfusion: No Patient Past Medical History n/a Immunizations Influenza Vaccine Up-to-Date: Yes; Up-to-Date Hepatitis A: No Hepatitis B: No OB - Admission Exam Physical Exam Vitals: Vital Signs 07/02/21 07/03/21 19:56 06:00 Temp 36.5 Pulse 80 Resp 18 B/P (MAP) 99/62 (74) O2 Delivery Room Air HEENT: NCAT Heart: Rhythm Normal Lungs: Clear Abdomen: Gravid Extremities: Normal Reflexes: Normal Cervical Dilatation: 3cm Effacement: 75% Station: -1 Membranes: Intact Heart Rate: 130's Accelerations: Accelerations Present Decelerations: No Decelerations Short Term Variability: Present Echo Technician Variability: Average (6-25) Contractions on Admission: 6-10 Minutes Apart Intensity: Mild Labs Laboratory Tests Test 07/02/21 17:30 Range/Units White Blood Count 10.9 4.3-11.0 10^3/uL Red Blood Count 4.08 3.80-5.11 10^6/uL Hemoglobin 13.1 11.5-16.0 g/dL Hematocrit 38 35-52 % Mean Corpuscular Volume 93 80-99 fL Mean Corpuscular Hemoglobin 32 25-34 pg Mean Corpuscular Hemoglobin Concent 35 32-36 g/dL Red Cell Distribution Width 12.7 10.0-14.5 % Platelet Count 217 130-400 10^3/uL Mean Platelet Volume 11.5 9.0-12.2 fL Immature Granulocyte % (Auto) 1 % Neutrophils (%) (Auto) 73 42-75 % Lymphocytes (%) (Auto) 15 12-44 % Monocytes (%) (Auto) 9 0-12 % Eosinophils (%) (Auto) 1 0-10 % Basophils (%) (Auto) 0 0-10 % Neutrophils # (Auto) 8.0 H 1.8-7.8 10^3/uL Lymphocytes # (Auto) 1.7 1.0-4.0 10^3/uL Monocytes # (Auto) 1.0 0.0-1.0 10^3/uL Eosinophils # (Auto) 0.1 0.0-0.3 10^3/uL Basophils # (Auto) 0.0 0.0-0.1 10^3/uL Immature Granulocyte # (Auto) 0.1 0.0-0.1 10^3/uL Urine Color YELLOW Urine Clarity CLEAR Urine pH 6.0 5-9 Urine Specific [place] 1.025 H 1.016-1.022 Urine Protein NEGATIVE NEGATIVE Urine Glucose (UA) NEGATIVE NEGATIVE Urine Ketones NEGATIVE NEGATIVE Urine Nitrite NEGATIVE NEGATIVE Urine Bilirubin NEGATIVE NEGATIVE Urine Urobilinogen 0.2 < = 1.0 MG/DL Urine Leukocyte Esterase NEGATIVE NEGATIVE Urine RBC (Auto) 3+ H NEGATIVE Urine RBC NONE /HPF Urine WBC 5-10 H /HPF Urine Squamous Epithelial Cells 2-5 /HPF Urine Renal Epithelial Cells NONE /HPF Urine Crystals NONE /LPF Urine Bacteria MODERATE H /HPF Urine Casts NONE /LPF Urine Mucus NEGATIVE /LPF Urine Culture Indicated YES Urine Creatinine 102 30-125 MG/DL Urine Protein/Creatinine Ratio 0.11 Sodium Level 137 135-145 MMOL/L Potassium Level 3.7 3.6-5.0 MMOL/L Chloride Level 106 98-107 MMOL/L Carbon Dioxide Level 18 L 21-32 MMOL/L Anion Gap 13 5-14 MMOL/L Blood Urea Nitrogen 10 7-18 MG/DL Creatinine 0.65 0.60-1.30 MG/DL Estimat Glomerular Filtration Rate 122 BUN/Creatinine Ratio 15 Glucose Level 111 H 70-105 MG/DL Uric Acid 4.2 2.6-7.2 MG/DL Calcium Level 9.0 8.5-10.1 MG/DL Corrected Calcium 9.4 8.5-10.1 MG/DL Total Bilirubin 0.3 0.1-1.0 MG/DL Aspartate Amino Transf (AST/SGOT) 14 5-34 U/L Alanine Aminotransferase (ALT/SGPT) 10 0-55 U/L Alkaline Phosphatase 91 40-136 U/L Total Protein 7.3 6.4-8.2 GM/DL Albumin 3.5 3.2-4.5 GM/DL OB - Assessment/Plan/Diagnosis Assessment Assessment: induction of labor Admission Dx 30 yo @ 38 weeks GHTN Oligohydramnios GBS neg Admission Status: Inpatient Order (span 2 midnights) Reason for Inpatient Admission: IOL at 38 weeks Plan Induction Method: per Misoprostol Protocol ANNEMARIE DALAL DO Jul 03, 2021 08:25
[2021-07-03] MEDS ORDERED: fentaNYL 2 mcg/ml BUPIVA 0.125 100 ML ONE (08:55)
[2021-07-03] MEDS ORDERED: fentaNYL INJ 100 MCG/2 ML AMP ONE (09:10)
[2021-07-03] MEDS ORDERED: BUPIVACAINE 0.25% 30 ML (SENSORCAINE) VIAL ONE (09:10)
[2021-07-03] MEDS ORDERED: NALOXONE 0.4 MG/ML 1 ML (NARCAN) VIAL IV PRN ×2 (09:15→14:15)
[2021-07-03] MEDS ORDERED: LACTATED RINGERS 1,000 ML IV ONE (09:15)
[2021-07-03] MEDS ORDERED: fentaNYL 2 mcg/ml BUPIVA 0.125 100 ML IV SCH (09:15)
[2021-07-03] MEDS ORDERED: diphenhydrAMINE 50 MG/ML INJ (BENADRYL) IV PRN (09:15)
[2021-07-03] MEDS ORDERED: CATHETER FLUSH 10 ML SYR IV PRN (09:15)
[2021-07-03] MEDS ORDERED: ONDANSETRON 4 MG/2 ML (SDV) Z0FRAN IV PRN (09:15)
[2021-07-03] MEDS ORDERED: LIDOCAINE/EPI 2% 1:200,00 (XYLOCAINE) 10 ML VIAL ONE (10:36)
[2021-07-03] MEDS ORDERED: IBUPROFEN 600 MG (MOTRIN) TAB PO ONE (12:14)
[2021-07-03] MEDS: IBUPROFEN 600 MG (MOTRIN) TAB PO SCH ×3 (12:18→23:35)
[2021-07-03] MEDS ORDERED: ACETAMINOPHEN 500 MG TAB (TYLENOL) PO PRN (14:15)
[2021-07-03] MEDS ORDERED: LIDOCAINE/EPI 2% 1:200,00 (XYLOCAINE) 10 ML VIAL INJ ONE (14:15)
[2021-07-03] MEDS ORDERED: BENZOCAINE/MENTHOL (DERMOPLAST) 56 ML CAN TP PRN (14:15)
[2021-07-03] MEDS ORDERED: DIBUCAINE 1% OINTMENT 30 GM TUBE TOP PRN (14:15)
[2021-07-03] MEDS ORDERED: WITCH HAZEL(TUCKS) 40 EA JAR TOP PRN (14:15)
--- NOTE | 2021-07-03 15:36 | OB Labor & Delivery Record ---
L&D History Date of Service Date of Service: Jul 03, 2021 History Expected Date of Delivery: Jul 15, 2021 Gestational Age in Weeks: 38 Hx : 2 Hx Para: 1 Complications Events: Induced HTN, Routine care Operative Indications (Cesarea: N/A-Vaginal Delivery Intrapartal Events: None L&D Stage1 Stage One Onset of Labor - Date: Jul 03, 2021 Monitors and Tracing Monitor Mode: Internal Heart Rate: 120 Monitor Accelerations: Uniform Monitor Decelerations: Early Station: -2 System Trainer Variability: Average (6-10) Short Term Variability: Absent Presentation: Vertex Vital Signs VS - Last 72 Hours, by Label 07/02/21 07/02/21 07/02/21 07/02/21 18:16 18:16 19:56 20:56 Temp 36.5 36.5 36.5 Pulse 94 94 93 Resp 18 18 18 B/P (MAP) 133/82 (99) 133/78 (96) 111/74 (86) Pulse Ox 97 97 O2 Delivery Room Air Room Air Room Air 07/02/21 07/02/21 07/02/21 07/02/21 21:30 22:00 22:30 23:30 Pulse 80 B/P (MAP) 105/65 (78) 101/64 (76) 91/50 (64) 110/64 (79) 07/03/21 07/03/21 07/03/21 07/03/21 00:00 00:30 01:00 01:30 Pulse 77 81 77 82 B/P (MAP) 100/59 (73) 107/68 (81) 107/63 (78) 108/61 (77) 07/03/21 07/03/21 07/03/21 07/03/21 02:00 02:30 03:00 03:30 Pulse 79 83 81 75 B/P (MAP) 111/68 (82) 108/69 (82) 116/74 (88) 106/62 (77) 07/03/21 07/03/21 07/03/21 07/03/21 04:30 05:00 05:30 06:00 Pulse 80 75 70 80 B/P (MAP) 110/68 (82) 102/60 (74) 98/59 (72) 99/62 (74) 07/03/21 07/03/21 07/03/21 07/03/21 07:30 08:00 08:15 08:30 Temp 36.7 Pulse 87 100 89 93 Resp 20 20 20 20 B/P (MAP) 113/83 (93) 120/92 (101) 139/86 (103) Pulse Ox 98 98 97 O2 Delivery Room Air Room Air Room Air Room Air 07/03/21 07/03/21 07/03/21 07/03/21 08:45 09:00 09:15 09:20 Pulse 91 81 91 83 Resp 20 20 20 20 B/P (MAP) 135/74 (94) 120/80 (93) 123/82 (96) 138/89 (105) Pulse Ox 98 98 100 99 O2 Delivery Room Air Room Air Room Air Room Air 07/03/21 07/03/21 07/03/21 07/03/21 09:23 09:26 09:30 09:33 Pulse 79 86 97 97 Resp 20 20 20 18 B/P (MAP) 143/97 (112) 122/70 (87) 130/79 (96) 127/58 (81) Pulse Ox 99 99 98 98 O2 Delivery Room Air Room Air Room Air Room Air 07/03/21 07/03/21 07/03/21 07/03/21 09:36 09:40 09:45 09:50 Temp 36.6 Pulse 85 96 101 68 Resp 18 18 18 18 B/P (MAP) 126/59 (81) 108/58 (75) 101/56 (71) 95/52 (66) Pulse Ox 97 97 97 99 O2 Delivery Room Air Room Air Room Air Room Air 07/03/21 07/03/21 07/03/21 07/03/21 09:55 10:00 10:15 10:30 Temp 36.4 Pulse 68 74 88 90 Resp 18 18 18 18 B/P (MAP) 108/58 (75) 109/60 (76) Pulse Ox 99 97 100 100 O2 Delivery Room Air Room Air Room Air Room Air 07/03/21 07/03/21 07/03/21 07/03/21 10:45 11:00 11:15 11:30 Pulse 76 86 85 54 Resp 18 18 18 18 B/P (MAP) 117/63 (81) 113/67 (82) 110/66 (81) 110/66 (81) Pulse Ox 100 99 99 99 O2 Delivery Room Air Room Air Room Air Room Air 07/03/21 07/03/21 07/03/21 07/03/21 11:45 12:00 12:15 12:30 Temp 36.8 Pulse 105 112 93 86 Resp 18 18 18 18 B/P (MAP) 187/74 (111) 108/51 (70) 110/54 (72) 110/55 (73) O2 Delivery Room Air Room Air Room Air Room Air 07/03/21 07/03/21 07/03/21 07/03/21 12:45 13:00 13:15 13:30 Pulse 81 81 83 82 Resp 18 18 18 18 B/P (MAP) 110/58 (75) 119/71 (87) 111/56 (74) 115/64 (81) O2 Delivery Room Air Room Air Room Air Room Air 07/03/21 07/03/21 13:45 14:00 Pulse 95 90 Resp 18 18 B/P (MAP) 114/71 (85) 109/64 (79) O2 Delivery Room Air Room Air Fundal Ht/Cervical Dilatation Uterus Position: -2 Rupture of Membranes Amniotic Membrane Rupture Time: 08 Induction/Anesthesia Epidural Cath Placement - Time: 921 L&D Stage2 Stage Two Stage II Date: Jul 03, 2021 Monitors and Tracing Monitor Mode: External Heart Rate: 120 Monitor Accelerations: Uniform Monitor Decelerations: Variable Fdc Variability: Average (6-10) Short Term Variability: Present Position: Right Occiput Anterior Presentation: Vertex Cord Descript/Complications Cord Vessel Description: 3 Vessels Delivery Type Infant Delivery Method: Spontaneous Vaginal Anterior Shoulder: Left Episiotomy/Perineal Laceration Laceraction(s)/Extensions: Yes Degree (describe repair) bilateral periurethrals repaired using 3-0 rapide in usual fashion. Condition of Infant Delivery 1 minute Comment: 8 5 minute Comment: 9 Notes live female infant weight 6lbs 11 oz Condition of Condition of Infant: Living Exam: No Observed Abnormalities Resuscitation Resuscitation: N/A - Spontaneous Resp L&D Stage3 Stage Three Stage III Date: Jul 03, 2021 Pictocin Pitocin Administration mu/min: 6 Pitocin ml/hr: 6 Pitocin Administration Comment: Pitocin increased per protocol. Placenta Delivery Placenta Delivery: Spontaneous Delivery Summary Summary Estimated blood loss (mL): 350 Attending at delivery: Annemarie Dalal DO Condition of Delivery Examined: Cervix Examined, Uterus Explored Post Hemorrhage: No Condition of Mother stable Condition of Infant (s) stable ANNEMARIE DALAL DO Jul 03, 2021 3:36 pm
[2021-07-03] MEDS ORDERED: CATHETER FLUSH 10 ML SYR IV SCH (22:00)
[2021-07-03] MEDS: DOCUSATE SODIUM 100 MG (COLACE) CAP PO SCH (23:35)
[2021-07-04 05:41] LABS: BASOPHILS % (AUTO) 0 % (0-10); EOSINOPHILS # (AUTO) 0.2 10^3/uL (0.0-0.3); EOSINOPHILS % (AUTO) 2 % (0-10); HEMATOCRIT 34 % (35-52); HEMOGLOBIN 11.4 g/dL (11.5-16.0); LYMPHOCYTES # (AUTO) 1.7 10^3/uL (1.0-4.0); LYMPHOCYTES % (AUTO) 18 % (12-44); MEAN CORPUSCULAR HEMOGLOBIN 32 pg (25-34); MEAN CORPUSCULAR HGB CONC 34 g/dL (32-36); MEAN CORPUSCULAR VOLUME 96 fL (80-99); MEAN PLATELET VOLUME 11.3 fL (9.0-12.2); MONOCYTES # (AUTO) 0.9 10^3/uL (0.0-1.0); MONOCYTES % (AUTO) 9 % (0-12); NEUTROPHILS # (AUTO) 6.5 10^3/uL (1.8-7.8); NEUTROPHILS % (AUTO) 70 % (42-75); PLATELET COUNT 179 10^3/uL (130-400); WHITE BLOOD COUNT 9.4 10^3/uL (4.3-11.0)
[2021-07-04 06:20] VITALS: BP 126/84
[2021-07-04] MEDS: IBUPROFEN 600 MG (MOTRIN) TAB PO SCH ×2 (06:21→12:39)
[2021-07-04] MEDS: DOCUSATE SODIUM 100 MG (COLACE) CAP PO SCH (08:20)
[2021-07-04 08:22] VITALS: BP 111/77
--- NOTE | 2021-07-04 08:25 | Postpartum Progress Note ---
Note Note Day # 1 Subjective: Patient is without complaints. Ambulating, voiding. Tolerating a regular diet without nausea or vomiting. Normal lochia. Pain is well controlled with oral pain medications. Objective: Physical Exam: General - Alert and oriented, no apparent distress Abdomen - Soft, appropriately tender to palpation, non-distended, fundus firm at umbilicus Extremities - no edema, negative Markos's bilaterally Assessment: PPD 1 NVD Plan: Routine care. Encourage breast feeding. Encourage ambulation. Ferrous sulfate supplementation. Plan for discharge today Vitals - Labs Vital Signs - I&O Vital Signs Date Time Temp Pulse Resp B/P (MAP) Pulse Ox O2 Delivery O2 Flow Rate FiO2 07/04/21 06:20 36.6 73 18 126/84 (98) 97 Room Air 07/03/21 23:35 36.6 86 18 106/66 (79) 98 Room Air 07/03/21 19:40 36.2 87 18 116/76 (89) 98 Room Air 07/03/21 17:50 36.6 79 18 124/76 (92) 96 Room Air 07/03/21 14:00 90 18 109/64 (79) Room Air 07/03/21 13:45 95 18 114/71 (85) Room Air 07/03/21 13:30 82 18 115/64 (81) Room Air 07/03/21 13:15 83 18 111/56 (74) Room Air 07/03/21 13:00 81 18 119/71 (87) Room Air 07/03/21 12:45 81 18 110/58 (75) Room Air 07/03/21 12:30 86 18 110/55 (73) Room Air 07/03/21 12:15 93 18 110/54 (72) Room Air 07/03/21 12:00 112 18 108/51 (70) Room Air 07/03/21 11:45 36.8 105 18 187/74 (111) Room Air 07/03/21 11:30 54 18 110/66 (81) 99 Room Air 07/03/21 11:15 85 18 110/66 (81) 99 Room Air 07/03/21 11:00 86 18 113/67 (82) 99 Room Air 07/03/21 10:45 76 18 117/63 (81) 100 Room Air 1/26/22 10:30 90 18 100 Room Air 07/03/21 10:15 88 18 100 Room Air 07/03/21 10:00 36.4 74 18 109/60 (76) 97 Room Air 07/03/21 09:55 68 18 108/58 (75) 99 Room Air 07/03/21 09:50 68 18 95/52 (66) 99 Room Air 07/03/21 09:45 101 18 101/56 (71) 97 Room Air 07/03/21 09:40 36.6 96 18 108/58 (75) 97 Room Air 07/03/21 09:36 85 18 126/59 (81) 97 Room Air 07/03/21 09:33 97 18 127/58 (81) 98 Room Air 07/03/21 09:30 97 20 130/79 (96) 98 Room Air 07/03/21 09:26 86 20 122/70 (87) 99 Room Air 07/03/21 09:23 79 20 143/97 (112) 99 Room Air 07/03/21 09:20 83 20 138/89 (105) 99 Room Air 07/03/21 09:15 91 20 123/82 (96) 100 Room Air 07/03/21 09:00 81 20 120/80 (93) 98 Room Air 07/03/21 08:45 91 20 135/74 (94) 98 Room Air 07/03/21 08:30 93 20 139/86 (103) 97 Room Air I & O 07/04/21 07:00 Intake Total 3315 ml Balance 3315 ml Labs Laboratory Tests 07/04/21 05:07: White Blood Count 9.4, Red Blood Count 3.54L, Hemoglobin 11.4L, Hematocrit 34L, Mean Corpuscular Volume 96, Mean Corpuscular Hemoglobin 32, Mean Corpuscular Hemoglobin Concent 34, Red Cell Distribution Width 12.7, Platelet Count 179, Mean Platelet Volume 11.3, Immature Granulocyte % (Auto) 1, Neutrophils (%) ( Auto) 70, Lymphocytes (%) (Auto) 18, Monocytes (%) (Auto) 9, Eosinophils (%) (Auto) 2, Basophils (%) (Auto) 0, Neutrophils # (Auto) 6.5, Lymphocytes # (Auto) 1.7, Monocytes # (Auto) 0.9, Eosinophils # (Auto) 0.2, Basophils # (Auto) 0.0, Immature Granulocyte # (Auto) 0.1 Microbiology 07/02/21 Urine Culture - Preliminary, Resulted NO GROWTH ANNEMARIE DALAL DO Jul 04, 2021 08:25
--- NOTE | 2021-07-04 08:26 | Discharge Inst-Women's Service ---
Discharge Inst-Women's Serv Depart Medication/Instructions New, Converted or Re-Newed RX: Transmitted to Pharmacy Final Diagnosis PPD 1 NVD Problems Reviewed?: Yes Consults/Follow Up Additional Follow Up: Yes Orders/Referrals Dr. Dalal in 6 weeks Activity Activity: Activity as Tolerated Driving Instructions: No Driving for 1 Week NO SMOKING: NO SMOKING Nothing Inside Vagina: No Douching, No [place], No Tampons Diet Discharge Diet: No Restrictions Symptoms to Report to : Bleeding Excessive, Pain Increased, Fever Over 101 Degrees F, Vaginal Bleeding Increase, Questions/Concerns For Any Problems or Questions: Contact Your Physician ANNEMARIE DALAL DO Jul 04, 2021 08:26
[2021-07-04] MEDS ORDERED: DOCU100C37 PO (08:28)
[2021-07-04] MEDS ORDERED: IBUP-844 PO (08:28)
[2021-07-04 12:36] VITALS: BP 113/75
--- NOTE | 2021-07-05 15:14 | Anesthesia-Regional Post-Op ---
Regional Patient Condition Mental Status: Alert, Oriented x3 Circulation: Same as Pre-Op Headache: Absent Sensation: Full Recovery Motor Block: Absent Post Op Complications Complications None Follow Up Care/Instructions Patient Instructions None needed. Anesthesia/Patient Condition I just talked to Joyce on the phone because I didn't see her before she was discharged to home. She is doing well, no complaints, stable vital signs, no apparent adverse anesthesia problems. ANNALEE SÁNCHEZ DO Jul 05, 2021 15:14
== END 2021-07-04 14:50 | disposition home or self-care (01) | DRG 806 ==
LOC: LDRP 17:04
PROVIDERS: ADMIT Obstetrics & Gynecology; ATTEND Obstetrics & Gynecology
PROC: 3E0DXGC Introduction of Other Therapeutic Substance into Mouth and Pharynx, External Approach (ICD-10-PCS; 2021-07-02)
PROC: 10E0XZZ Delivery of Products of Conception, External Approach (ICD-10-PCS; principal; 2021-07-03)
PROC: 0UQMXZZ Repair Vulva, External Approach (ICD-10-PCS; 2021-07-03)
DX: O13.4 Gestational [pregnancy-induced] hypertension without significant proteinuria, complicating childbirth (principal); O41.03X0 Oligohydramnios, third trimester, not applicable or unspecified; Z37.0 Single live birth; Z3A.38 38 weeks gestation of pregnancy; O71.82 Other specified trauma to perineum and vulva
CPT/HCPCS: 36415; 80053; 81000; 82570; 83033; 84156; 84550; 85025; 86850; 86900; 86901; 87088

== ENCOUNTER 2021-09-09 05:10 | Emergency (ER) | payer BC, MEDICAID ==
[~2021-09-09] VITALS: Ht 165.1 cm; Wt 87.8 kg
[~2021-09-09 05:10] MED LIST changes: +DOCU100C37 PO
[2021-09-09 05:56] LABS: BILIRUBIN,URINE NEGATIVE (NEGATIVE); CLARITY,URINE CLEAR; COLOR,URINE YELLOW; GLUCOSE, URINE (UA) NEGATIVE (NEGATIVE); KETONES,URINE NEGATIVE (NEGATIVE); LEUKOCYTE ESTERASE ,URINE NEGATIVE (NEGATIVE); NITRITE,URINE NEGATIVE (NEGATIVE); PROTEIN,URINE NEGATIVE (NEGATIVE)
[2021-09-09 06:04] LABS: BACTERIA,URINE TRACE /HPF
[2021-09-09] MEDS ORDERED: KETOROLAC 30 MG/ML VIAL IVP ONE (06:30)
--- NOTE | 2021-09-09 06:38 | ED Abdominal Pain ---
General Chief Complaint: Abdominal/GI Problems Stated Complaint: LOWER ABD PAIN WHEN MOVING Nursing Triage Note: PATIENT STATES THAT SHE WOKE UP AT 0400 WHEN HER BABY WAS CRYING. AT THAT TIME, SHE BEGAN TO HAVE LOWER ABD PAIN WITH WALKING. HER LAST BM WAS YESTERDAY WHEN SHE HAD DIARRHEA. SHE HAS A HX OF IBS AND SAW DR. GUTIERREZ LAST THURSDAY AND HAS A COLONOSCOPY SCHEDULED FOR 2 MO FROM NOW. Source of Information: Patient Exam Limitations: No Limitations History of Present Illness Date Seen by Provider: Sep 09, 2021 Time Seen by Provider: 06:15 Initial Comments Patient is a 30-year-old female who presents to the emergency department today with a chief complaint of lower abdominal pain, sudden onset around 4 AM this morning. Patient is 2 months normal spontaneous vaginal delivery. She tells me that she has a history of chronic constipation and chronic lower abdominal pain. She states this pain is similar in quality but significantly more intense. She has very minimal nausea. She has had diarrhea since yesterday, the kids at home and her have had a recent diarrheal illness. No fevers, chills. No abdominal surgeries. She is scheduled with Dr. Gutierrez for a colonoscopy in a couple of months. She states she has a history of bloody stools. She has never had a colonoscopy before. She has not had a menstrual cycle since delivery. She is not breast-feeding. Denies burning with urination, increased frequency or urgency. No abnormal vaginal discharge. Pain is worsened with movement, walking. Has settled more in the left lower quadrant. All other review of systems reviewed and negative except as stated. Timing/Duration: 1-3 Hours Severity/Quality: Severe, Aching, Cramping Location: [facility] Activities at Onset: Sleeping Modifying Factors: Improves With Lying down; Worsens With Movement Associated Symptoms: Nausea/Vomiting (slight nausea) Allergies and Home Medications Allergies Coded Allergies: No Known Drug Allergies (Unverified , 11/25/19) Patient Home Medication List Home Medication List Reviewed: Yes Docusate Sodium (Docusate Sodium) 100 Mg Capsule, 100 MG PO BID PRN for CO NSTIPATION-1ST LINE Prescribed by: ANNEMARIE DALAL on 07/04/21827 Ibuprofen (Ibu) 600 Mg Tablet, 600 MG PO Q6H Prescribed by: ANNEMARIE DALAL on 07/04/21827 Review of Systems Review of Systems Constitutional: see HPI EENTM: No Symptoms Reported Respiratory: No Symptoms Reported Cardiovascular: No Symptoms Reported Gastrointestinal: Abdominal Pain, Diarrhea, Nausea Genitourinary: No Symptoms Reported Musculoskeletal: no symptoms reported Skin: no symptoms reported All Other Systems Reviewed Negative Unless Noted: Yes Past Drnfehb-Afeffc-Zpzqni Hx Patient Social History Tobacco Use?: No Substance use?: No Alcohol Use?: No Immunizations Up To Date First/Initial COVID19 Vaccinat: 05/14/21 Second COVID19 Vaccination Ramon: 08/12/21 COVID19 Vaccine Cosmetic Maker: [id number] Seasonal Allergies Seasonal Allergies: Yes Past Medical History Surgeries: No Respiratory: No Cardiac: No Neurological: No Last Menstrual Period: October 10, 2020 Genitourinary: No Gastrointestinal: No Musculoskeletal: No Endocrine: No HEENT: No Cancer: No Psychosocial: No Integumentary: No Blood Disorders: No Adverse Reaction/Blood Tranf: No Family Medical History Alcoholism 19 FATHER 19 MOTHER Cardiovascular disease G8 BROTHER Diabetes mellitus G8 BROTHER FHx: anemia 19 MOTHER G8 BROTHER Hypertension 19 FATHER G8 SISTER Psychosocial problem 19 FATHER Seizure disorder G8 BROTHER Physical Exam Vital Signs Vital Signs - First Documented 09/09/21 05:38 Temp 36.5 Pulse 96 Resp 18 B/P (MAP) 136/93 (107) Pulse Ox 99 O2 Delivery Room Air Capillary Refill : Less Than 3 Seconds Height/Weight/BMI Height: '" Weight: lbs. oz. kg; 32.00 BMI Method: General Appearance: WD/WN, no apparent distress HEENT: PERRL/EOMI Neck: normal inspection Respiratory: lungs clear, normal breath sounds, no respiratory distress, no accessory muscle use Cardiovascular: regular rate, rhythm Gastrointestinal: soft, abnormal bowel sounds (hyperactive), tenderness (LLQ) Extremities: normal range of motion, normal inspection Neurologic/Psychiatric: alert, normal mood/affect, oriented x 3 Skin: normal color, warm/dry Progress/Results/Core Measures Results/Orders Lab Results Laboratory Tests Test 09/09/21 05:36 09/09/21 06:23 Range/Units Urine Color YELLOW Urine Clarity CLEAR Urine pH 6.0 5-9 Urine Specific [place] 1.015 L 1.016-1.022 Urine Protein NEGATIVE NEGATIVE Urine Glucose (UA) NEGATIVE NEGATIVE Urine Ketones NEGATIVE NEGATIVE Urine Nitrite NEGATIVE NEGATIVE Urine Bilirubin NEGATIVE NEGATIVE Urine Urobilinogen 0.2 < = 1.0 MG/DL Urine Leukocyte Esterase NEGATIVE NEGATIVE Urine RBC (Auto) NEGATIVE NEGATIVE Urine RBC NONE /HPF Urine WBC NONE /HPF Urine Squamous Epithelial Cells 2-5 /HPF Urine Crystals NONE /LPF Urine Bacteria TRACE /HPF Urine Casts NONE /LPF Urine Mucus NEGATIVE /LPF Urine Culture Indicated NO White Blood Count 5.5 4.3-11.0 10^3/uL Red Blood Count 4.70 3.80-5.11 10^6/uL Hemoglobin 14.6 11.5-16.0 g/dL Hematocrit 42 35-52 % Mean Corpuscular Volume 88 80-99 fL Mean Corpuscular Hemoglobin 31 25-34 pg Mean Corpuscular Hemoglobin Concent 35 32-36 g/dL Red Cell Distribution Width 11.9 10.0-14.5 % Platelet Count 248 130-400 10^3/uL Mean Platelet Volume 9.6 9.0-12.2 fL Immature Granulocyte % (Auto) 0 % Neutrophils (%) (Auto) 58 42-75 % Lymphocytes (%) (Auto) 25 12-44 % Monocytes (%) (Auto) 14 H 0-12 % Eosinophils (%) (Auto) 2 0-10 % Basophils (%) (Auto) 0 0-10 % Neutrophils # (Auto) 3.2 1.8-7.8 10^3/uL Lymphocytes # (Auto) 1.4 1.0-4.0 10^3/uL Monocytes # (Auto) 0.8 0.0-1.0 10^3/uL Eosinophils # (Auto) 0.1 0.0-0.3 10^3/uL Basophils # (Auto) 0.0 0.0-0.1 10^3/uL Immature Granulocyte # (Auto) 0.0 0.0-0.1 10^3/uL Sodium Level 139 135-145 MMOL/L Potassium Level 3.3 L 3.6-5.0 MMOL/L Chloride Level 107 98-107 MMOL/L Carbon Dioxide Level 19 L 21-32 MMOL/L Anion Gap 13 5-14 MMOL/L Blood Urea Nitrogen 8 7-18 MG/DL Creatinine 0.66 0.60-1.30 MG/DL Estimat Glomerular Filtration Rate 122 BUN/Creatinine Ratio 12 Glucose Level 96 70-105 MG/DL Calcium Level 8.9 8.5-10.1 MG/DL C-Reactive Protein High Sensitivity 0.18 0.00-0.50 MG/DL My Orders Orders - JAMAR SPARKS MD Ed Iv/Invasive Line Start (09/09/21 06:29) Cbc With Automated Diff (09/09/21 06:29) Basic Metabolic Panel (09/09/21 06:29) Hs C Reactive Protein (09/09/21 06:29) Ketorolac Injection (Toradol Injection) (09/09/21 06:30) Medications Given in ED Current Medications Medications Dose Ordered Sig/Akiko Route Start Time Stop Time Status Last Admin Dose Admin Ketorolac Tromethamine 15 mg ONCE ONCE IVP 09/09/21 06:30 09/09/21 06:31 DC 09/09/21 07:05 15 MG Vital Signs/I&O 09/09/21 09/09/21 05:38 07:05 Temp 36.5 36.5 Pulse 96 Resp 18 B/P (MAP) 136/93 (107) Pulse Ox 99 O2 Delivery Room Air Blood Pressure Mean: 107 Progress Progress Note : Time: 07:39 Progress Note Patient labs reviewed and reassuring, everything is within normal limits. Patient remains afebrile. No vomiting. She is given Toradol and states that she thinks it helped a little bit. She still is aware of some discomfort in her left lower abdomen however it is not severe. I recommended alternating Tylenol and ibuprofen. Clear liquid diet today. Advance as tolerated. Alternate Tylenol and ibuprofen for discomfort. As long as she does not have a fever or blood in her stool she can continue to use a little Imodium. She states she did use some yesterday. Return precautions discussed. All questions are sought and answered. Patient is stable for discharge. Departure Impression Primary Impression: Abdominal pain Qualified Codes: R10.32 - Left lower quadrant pain Additional Impression: Diarrhea Qualified Codes: R19.7 - Diarrhea, unspecified Disposition: 01 HOME, SELF-CARE Condition: Stable Departure-Patient Inst. Decision time for Depature: 07:40 Referrals: ANNEMARIE DALAL DO (PCP/Family) Primary Care Physician Patient Instructions: Diarrhea, Adult ED Add. Discharge Instructions: Follow a clear liquid diet today, slowly advance her diet as tolerated after this. Alternate Tylenol and ibuprofen as needed for abdominal cramping/pain. Return to the emergency room for reevaluation if you have fever, vomiting or worsening pain. Keep your appointment as scheduled for colonoscopy with Dr. Gutierrez. Work/School Note: Work Release Form Date Seen in the Emergency Department: Sep 09, 2021 Return to Work: Sep 10, 2021 JAMAR SPARKS MD Sep 09, 2021 06:38
[2021-09-09 07:00] LABS: BASOPHILS % (AUTO) 0 % (0-10); EOSINOPHILS # (AUTO) 0.1 10^3/uL (0.0-0.3); EOSINOPHILS % (AUTO) 2 % (0-10); HEMATOCRIT 42 % (35-52); HEMOGLOBIN 14.6 g/dL (11.5-16.0); LYMPHOCYTES # (AUTO) 1.4 10^3/uL (1.0-4.0); LYMPHOCYTES % (AUTO) 25 % (12-44); MEAN CORPUSCULAR HEMOGLOBIN 31 pg (25-34); MEAN CORPUSCULAR HGB CONC 35 g/dL (32-36); MEAN CORPUSCULAR VOLUME 88 fL (80-99); MEAN PLATELET VOLUME 9.6 fL (9.0-12.2); MONOCYTES # (AUTO) 0.8 10^3/uL (0.0-1.0); MONOCYTES % (AUTO) 14 % (0-12); NEUTROPHILS # (AUTO) 3.2 10^3/uL (1.8-7.8); NEUTROPHILS % (AUTO) 58 % (42-75); PLATELET COUNT 248 10^3/uL (130-400); WHITE BLOOD COUNT 5.5 10^3/uL (4.3-11.0)
[2021-09-09 07:10] LABS: POTASSIUM 3.3 MMOL/L (3.6-5.0)
[2021-09-09 07:11] LABS: CALCIUM 8.9 MG/DL (8.5-10.1)
[2021-09-09 07:15] LABS: CREATININE SERUM 0.66 MG/DL (0.60-1.30)
[2021-09-09 07:51] VITALS: BP 136/93
== END 2021-09-09 07:51 | disposition home or self-care (01) ==
LOC: EDUNIT# 05:10 → ER 05:13
DX: R10.32 Left lower quadrant pain (principal); R19.7 Diarrhea, unspecified
CPT/HCPCS: 36415; 80048; 81000; 84703; 85025; 86141; 99282

== ENCOUNTER 2021-10-30 06:19 | Outpatient (CLI) | payer BC, MEDICAID ==
[~2021-10-30] VITALS: Ht 165.1 cm; Wt 90.7 kg
[2021-10-30] MEDS ORDERED: LEVO1TAB79 PO (10:05)
== END 2021-10-30 13:34 | disposition home or self-care (01) ==
LOC: PREOP 06:19
PROVIDERS: ATTEND Surgery
DX: Z01.818 Encounter for other preprocedural examination (principal)

== ENCOUNTER 2021-11-11 07:04 | Day surgery (SDC) | payer BC, MEDICAID ==
[~2021-11-11] VITALS: Ht 165.1 cm; Wt 90.7 kg
[~2021-11-11 07:04] MED LIST changes: +LEVO1TAB79 PO
[2021-11-11] MEDS ORDERED: LACTATED RINGERS 1,000 ML IV STA (07:09)
[2021-11-11] MEDS ORDERED: PROPOFOL INJECTION 50 ML IV ONE (07:28)
[2021-11-11] MEDS ORDERED: MIDAZOLAM 2 MG/2 ML (VERSED) VIAL ONE (07:28)
[2021-11-11 07:30] VITALS: BP 119/93
[2021-11-11 08:35] VITALS: BP 117/77
--- NOTE | 2021-11-11 08:36 | Progress Note-Post Operative ---
Post-Operative Progess Note Surgeon (s)/Patient Support Partner (s) Surgeon ANAY BAILEY DO Patient Support Partner: na Pre-Operative Diagnosis hematochezia, anal pain, anal fissure Post-Operative Diagnosis anterior anal fissure Procedure & Operative Findings Date of Procedure 11/11/21 Procedure Performed/Findings colonoscopy Anesthesia Type per sugar laboratory assistant Estimated Blood Loss Estimated blood loss (mL): na Specimens/Packing Specimens Removed na ANAY BAILEY DO Nov 11, 2021 08:36
--- NOTE | 2021-11-11 08:37 | Discharge Inst-Simple/Standard ---
Discharge Inst-Standard Patient Instructions/Follow Up Plan of Care/Instructions/FU: 3 weeks Matt Activity as Tolerated: Yes Discharge Diet: Regular Diet (high fiber, keep stools soft, stool softeners if needed.) ANAY BAILEY DO Nov 11, 2021 08:37
[2021-11-11] MEDS ORDERED: DOCU-143 PO (08:38)
[2021-11-11 08:40] VITALS: BP 117/77
[2021-11-11 09:05] VITALS: BP 113/90
[2021-11-11 09:13] VITALS: BP 113/90
--- NOTE | 2021-11-11 09:34 | Anesthesia-General Post-Op ---
MAC Patient Condition Mental Status/LOC: Same as Preop Cardiovascular: Satisfactory Nausea/Vomiting: Absent Respiratory: Satisfactory Pain: Controlled Complications: Absent Post Op Complications Complications None Follow Up Care/Instructions Patient Instructions None needed. Anesthesiology Discharge Order Discharge Order Patient is doing well, no complaints, stable vital signs, no apparent adverse anesthesia problems. No complications reported per nursing. ELE MEREDITH CRNA Nov 11, 2021 09:34
--- NOTE | 2021-11-11 15:27 | OPERATIVE REPORT ---
DATE OF SERVICE: 11/11/2021 PREOPERATIVE DIAGNOSES: Hematochezia, anal pain, anal fissure. POSTOPERATIVE DIAGNOSIS: Anal fissure, anterior. PROCEDURE: Colonoscopy. SURGEON: nAay Gutierrez DO ANESTHESIA: Per DRIVER/GUIDE. ESTIMATED BLOOD LOSS: None. COMPLICATIONS: None. INDICATIONS: The patient is a 30-year-old female with hematochezia, anal pain and a small anal fissure. She understands risks and benefits of procedure and wishes to proceed. Consent was signed in the chart. DESCRIPTION OF PROCEDURE: The patient was taken to the endoscopy suite, placed in left lateral recumbent position. Timeout was performed. Digital rectal exam was performed. No palpable polyps, masses present. A small anal fissure anteriorly, very superficial. Scope was inserted in the rectum and advanced all the way to cecum with minimal difficulty. Prep was adequate. Scope was slowly retracted back. No polyps, masses or ulcerations within the cecum, ascending, transverse, descending and sigmoid colon. Once in the rectum, the scope was attempted to be retroflexed, but was unable to be, so multiple insertions and retractions were made noting no other pathology. Scope was slowly retracted back until completely removed. The patient tolerated procedure well without any complications, taken to recovery room in stable condition. RECOMMENDATIONS: The patient will need repeat colonoscopy per screening guidelines. If continues to have bleeding, would reevaluate with earlier colonoscopy. We would also recommend keeping the stool soft try some diltiazem cream as well. The patient will follow up in 3 weeks. Job ID: [id number] DocumentID: [id number] Dictated Date: 11/11/2021 08:40:39 Binder Selector Date: 11/11/2021 15:26:34 Dictated By: ANAY GUTIERREZ DO
== END 2021-11-11 09:30 ==
LOC: ENDO 07:04
PROVIDERS: ATTEND Surgery
DX: K60.2 Anal fissure, unspecified (principal); K92.1 Melena; K62.89 Other specified diseases of anus and rectum
CPT/HCPCS: 84703

== ENCOUNTER → 2022-12-22 | Outpatient (CLI) | payer BC, MEDICAID ==
[~2022-12-22] MED LIST changes: +DOCU-143 PO
--- NOTE | 2022-12-22 18:20 | Diagnostic Imaging Report ---
INDICATION: Routine care. TECHNIQUE: Multiple real-time grayscale images were obtained over the gravid uterus. COMPARISON: None FINDINGS: There is a [place] viable IUP in cephalic presentation. Normal amniotic fluid. ANDRÉS 9.1. The placenta posterior with no abruption or previa. The caudal tip of the placenta lies 2.8 cm from the close internal os, the cervix measuring 4.7 cm in length. No pathological finding at the anatomical survey with a regular heart rate of 158 bpm. The measurements correlate with an average age of 20 weeks 1 day sonographic date of confinement 05/10/2023. Biometrical measurements are as follows: Biparietal 4.61 cm, age 20 weeks 0 days. Head circumference 17.77 cm, age 20 weeks 2 days. Abdominal circumference 14.54 cm, age 19 weeks 6 days. Femur length 3.23 cm, age 20 weeks 1 days. Sonographic estimate age: 20 weeks 1 days. Sonographic estimated date of delivery: 05/08/23. Estimated Weight: 325 gm (+/- 48 gm). LMP percentile: 23%. heart rate: 158 beats per minute. number: 1 of 1. IMPRESSION: 20 weeks 1 day [place] viable IUP with no pathological finding identified. Dictated by: Dictated on workstation # [id number]
== END ==
LOC: RAD 09:39
PROVIDERS: ATTEND Nurse Practitioner Women's Health
DX: Z34.92 Encounter for supervision of normal pregnancy, unspecified, second trimester (principal); Z3A.20 20 weeks gestation of pregnancy
CPT/HCPCS: 76805

== ENCOUNTER → 2023-04-06 | Outpatient (CLI) | payer BC, MEDICAID | LOC: LABNPT 12:26 | PROVIDERS: ATTEND Nurse Practitioner Women's Health | DX: O13.9 Gestational [pregnancy-induced] hypertension without significant proteinuria, unspecified trimester (principal); Z3A.00 Weeks of gestation of pregnancy not specified | CPT/HCPCS: 82570; 84156 ==

== ENCOUNTER → 2023-04-13 | Outpatient (CLI) | payer BC | LOC: LABNPT 10:20 | PROVIDERS: ATTEND Obstetrics & Gynecology | DX: O13.9 Gestational [pregnancy-induced] hypertension without significant proteinuria, unspecified trimester (principal) | CPT/HCPCS: 82570; 84156 ==

== ENCOUNTER → 2023-04-20 | Outpatient (CLI) | payer BC | LOC: LABNPT 11:04 | PROVIDERS: ATTEND Obstetrics & Gynecology | DX: O13.9 Gestational [pregnancy-induced] hypertension without significant proteinuria, unspecified trimester (principal) | CPT/HCPCS: 82570; 84156 ==

== ENCOUNTER 2023-04-21 19:00 | Inpatient (IN) | payer BC ==
[~2023-04-21] VITALS: Ht 165.1 cm; Wt 96.9 kg
[2023-04-26] VITALS (12 sets, daily range): BP systolic 114–131; BP diastolic 72–90
[2023-04-26] MEDS ORDERED: HYDROmorphone INJECTION 2 MG/ML VIAL IV PRN (19:30)
[2023-04-26] MEDS ORDERED: TERBUTALINE INJ 1 MG/ML (BRETHINE) AMP SC PRN (19:45)
[2023-04-26] MEDS ORDERED: LACTATED RINGERS 1,000 ML 500 ML IV PRN (19:45)
[2023-04-26] MEDS ORDERED: NS IV 1000 ML 1,000 ML IV SCH (19:45)
[2023-04-26] MEDS ORDERED: D5 LR 1,000 ML IV SOLN 1,000 ML IV ONE (19:55)
[2023-04-26 20:04] LABS: CLARITY,URINE CLEAR; COLOR,URINE YELLOW
[2023-04-26 20:05] LABS: BACTERIA,URINE TRACE /HPF; BILIRUBIN,URINE NEGATIVE (NEGATIVE); GLUCOSE, URINE (UA) NEGATIVE (NEGATIVE); KETONES,URINE NEGATIVE (NEGATIVE); LEUKOCYTE ESTERASE ,URINE 1+ (NEGATIVE); NITRITE,URINE NEGATIVE (NEGATIVE); PROTEIN,URINE TRACE (NEGATIVE); RBC,URINE RARE /HPF
[2023-04-26] MEDS ORDERED: NS IV 1000 ML 1,000 ML ONE (20:12)
[2023-04-26 20:17] LABS: BASOPHILS % (AUTO) 0 % (0-10); EOSINOPHILS # (AUTO) 0.2 10^3/uL (0.0-0.3); EOSINOPHILS % (AUTO) 2 % (0-10); HEMATOCRIT 36 % (35-52); HEMOGLOBIN 12.6 g/dL (11.5-16.0); LYMPHOCYTES # (AUTO) 1.7 10^3/uL (1.0-4.0); LYMPHOCYTES % (AUTO) 18 % (12-44); MEAN CORPUSCULAR HEMOGLOBIN 32 pg (25-34); MEAN CORPUSCULAR HGB CONC 35 g/dL (32-36); MEAN CORPUSCULAR VOLUME 92 fL (80-99); MONOCYTES # (AUTO) 0.8 10^3/uL (0.0-1.0); MONOCYTES % (AUTO) 9 % (0-12); NEUTROPHILS # (AUTO) 6.5 10^3/uL (1.8-7.8); NEUTROPHILS % (AUTO) 71 % (42-75); PLATELET COUNT 198 10^3/uL (130-400); WHITE BLOOD COUNT 9.2 10^3/uL (4.3-11.0)
[2023-04-26] MEDS: D5 LR 1,000 ML IV SOLN 1,000 ML IV SCH (20:53)
[2023-04-26 21:08] LABS: ALBUMIN 3.2 GM/DL (3.2-4.5); CHLORIDE 105 MMOL/L (98-107); POTASSIUM 3.7 MMOL/L (3.6-5.0); SODIUM 136 MMOL/L (135-145)
[2023-04-26 21:09] LABS: CALCIUM 8.7 MG/DL (8.5-10.1)
[2023-04-26 21:10] LABS: GLUCOSE 100 MG/DL (70-105)
[2023-04-26 21:11] LABS: TOTAL PROTEIN 7.1 GM/DL (6.4-8.2)
[2023-04-26 21:12] LABS: CARBON DIOXIDE 20 MMOL/L (21-32)
[2023-04-26 21:13] LABS: BILIRUBIN,TOTAL 0.3 MG/DL (0.1-1.0)
[2023-04-26 21:14] LABS: ALKALINE PHOSPHATASE 171 U/L (40-136); CREATININE SERUM 0.67 MG/DL (0.60-1.30); GFR ESTIMATED 120
[2023-04-26 21:15] LABS: BUN/CREATININE RATIO 13
[2023-04-26 21:17] LABS: ALANINE AMINOTRANSFERASE < 6 U/L (0-55); URIC ACID 5.7 MG/DL (2.6-7.2)
[2023-04-26] MEDS ORDERED: CATHETER FLUSH 10 ML SYR IV SCH (22:00)
[2023-04-27] VITALS (55 sets, daily range): BP systolic 101–144; BP diastolic 55–91
[2023-04-27] MEDS: D5 LR 1,000 ML IV SOLN 1,000 ML IV SCH ×2 (04:32→12:09)
--- NOTE | 2023-04-27 08:00 | History & Physical-OB ---
OB - Chief Complaint & HPI Date/Time Date of Admission: Date of Admission: Apr 26, 2023 at 18:53 Date seen by a Provider: Apr 27, 2023 Time Seen by a Provider: 07:55 Chief Complaint/History OB-Reason for Admission/Chief: Induction of Labor Hx : 3 Hx Para: 2 Expected Date of Delivery: May 08, 2023 Gestational Age in Weeks: 38 Gestational Age in Days: 2 Indication for induction: medical complication Admission Nurse Assessment Rev: Yes History of Labs A neg Antibody neg RI RPR NR HBsAg NR HIV NR GC neg GBS neg Allergies and Home Medications Allergies Coded Allergies: No Known Drug Allergies (Unverified , 11/25/19) Patient Home Medication List Home Medication List Reviewed: Yes Docusate Sodium (Colace) 100 Mg Capsule, 100 MG PO BID Prescribed by: ANAY BAILEY on 11/11/21 0838 Ibuprofen (Ibu) 600 Mg Tablet, 600 MG PO Q6H Prescribed by: ANNEMARIE DALAL on 07/04/21 0828 Levonorgestrel-Ethin Estradiol (Vienva-28 Tablet) 0.1 Mg-20 Mcg Tablet, 1 EACH PO DAILY, (Reported) Entered as Reported by: COLUMBA AARON on 10/30/21 1005 OB - History Hx of Present Care: Yes Ultrasounds: Normal mid trimester US Obstetrical Complications: Gestational Hypertension Medical Complications: None Delivery History Adverse Rxn to Tranfusion: No Patient Past Medical History n/a Social History/Family History 2nd Hand Smoke Exposure: No Immunizations Influenza Vaccine Up-to-Date: Yes; Up-to-Date First/Initial COVID19 Vaccine: JANUARY 2021 Second COVID19 Vaccination: 2020 Third COVID19 Vaccination Date: NO Hepatitis A: No Hepatitis B: No Tetanus Booster (TDap): Unknown OB - Admission Exam Physical Exam Vitals: Vital Signs 04/27/23 04/27/23 05:08 06:37 Temp 35.8 Pulse 86 Resp 18 B/P (MAP) 137/88 (104) Pulse Ox 99 O2 Delivery Room Air HEENT: NCAT Heart: Rhythm Normal Lungs: Clear Abdomen: Gravid Extremities: Normal Reflexes: Normal Cervical Dilatation: 2cm Effacement: 75% Station: -2 Membranes: Intact Heart Rate: 130's Accelerations: Accelerations Present Decelerations: No Decelerations Short Term Variability: Present [employer] Variability: Average (6-25) Contractions on Admission: 6-10 Minutes Apart Intensity: Mild Labs Laboratory Tests Test 04/26/23 19:10 04/26/23 20:05 Range/Units Urine Color YELLOW Urine Clarity CLEAR Urine pH 5.0 5-9 Urine Specific [place] >1.030 1.016-1.022 Urine Protein TRACE H NEGATIVE Urine Glucose (UA) NEGATIVE NEGATIVE Urine Ketones NEGATIVE NEGATIVE Urine Nitrite NEGATIVE NEGATIVE Urine Bilirubin NEGATIVE NEGATIVE Urine Urobilinogen 0.2 < = 1.0 MG/DL Urine Leukocyte Esterase 1+ H NEGATIVE Urine RBC (Auto) TRACE H NEGATIVE Urine RBC RARE /HPF Urine WBC 2-5 /HPF Urine Squamous Epithelial Cells 5-10 /HPF Urine Crystals NONE /LPF Urine Bacteria TRACE /HPF Urine Casts NONE /LPF Urine Mucus NEGATIVE /LPF Urine Culture Indicated NO Urine Creatinine 124 30-125 MG/DL Urine Protein/Creatinine Ratio 0.16 Sodium Level 136 135-145 MMOL/L Potassium Level 3.7 3.6-5.0 MMOL/L Chloride Level 105 98-107 MMOL/L Carbon Dioxide Level 20 L 21-32 MMOL/L Anion Gap 11 5-14 MMOL/L Blood Urea Nitrogen 9 7-18 MG/DL Creatinine 0.67 0.60-1.30 MG/DL Estimat Glomerular Filtration Rate 120 BUN/Creatinine Ratio 13 Glucose Level 100 70-105 MG/DL Uric Acid 5.7 2.6-7.2 MG/DL Calcium Level 8.7 8.5-10.1 MG/DL Corrected Calcium 9.3 8.5-10.1 MG/DL Total Bilirubin 0.3 0.1-1.0 MG/DL Aspartate Amino Transf (AST/SGOT) 14 5-34 U/L Alanine Aminotransferase (ALT/SGPT) < 6 0-55 U/L Alkaline Phosphatase 171 H 40-136 U/L Total Protein 7.1 6.4-8.2 GM/DL Albumin 3.2 3.2-4.5 GM/DL White Blood Count 9.2 4.3-11.0 10^3/uL Red Blood Count 3.90 3.80-5.11 10^6/uL Hemoglobin 12.6 11.5-16.0 g/dL Hematocrit 36 35-52 % Mean Corpuscular Volume 92 80-99 fL Mean Corpuscular Hemoglobin 32 25-34 pg Mean Corpuscular Hemoglobin Concent 35 32-36 g/dL Red Cell Distribution Width 12.6 10.0-14.5 % Platelet Count 198 130-400 10^3/uL Mean Platelet Volume 11.0 9.0-12.2 fL Immature Granulocyte % (Auto) 1 % Neutrophils (%) (Auto) 71 42-75 % Lymphocytes (%) (Auto) 18 12-44 % Monocytes (%) (Auto) 9 0-12 % Eosinophils (%) (Auto) 2 0-10 % Basophils (%) (Auto) 0 0-10 % Neutrophils # (Auto) 6.5 1.8-7.8 10^3/uL Lymphocytes # (Auto) 1.7 1.0-4.0 10^3/uL Monocytes # (Auto) 0.8 0.0-1.0 10^3/uL Eosinophils # (Auto) 0.2 0.0-0.3 10^3/uL Basophils # (Auto) 0.0 0.0-0.1 10^3/uL Immature Granulocyte # (Auto) 0.1 0.0-0.1 10^3/uL Syphilis Total Antibody Negative Negative OB - Assessment/Plan/Diagnosis Assessment Assessment: induction of labor Admission Dx 32 yo @ 38 weeks GHTN GBS neg Admission Status: Inpatient Order (span 2 midnights) Reason for Inpatient Admission: IOL at 38 weeks Plan Plan: Induction Induction Method: per Misoprostol Protocol ANNEMARIE DALAL DO Apr 27, 2023 07:59
[2023-04-27] MEDS ORDERED: fentaNYL 2 mcg/ml BUPIVA 0.125 100 ML ONE (08:30)
[2023-04-27] MEDS ORDERED: OXYTOCIN DRIP PRE-MIX 500 ML IV SCH (08:30)
[2023-04-27] MEDS ORDERED: LACTATED RINGERS 1,000 ML 1,000 ML IV SCH (09:30)
[2023-04-27] MEDS ORDERED: diphenhydrAMINE INJ 50 MG/ML VIAL IV PRN (09:30)
[2023-04-27] MEDS ORDERED: ONDANSETRON INJECTION 4 MG/2 ML (SDV) IV PRN (09:30)
[2023-04-27] MEDS ORDERED: fentaNYL 2 mcg/ml BUPIVA 0.125 100 ML EPI SCH (09:30)
[2023-04-27] MEDS ORDERED: NALOXONE 0.4 MG/ML 1 ML VIAL IV PRN ×3 (09:30→14:00)
[2023-04-27] MEDS ORDERED: METOCLOPRAMIDE INJ 10 MG/2 ML IV PRN (09:30)
[2023-04-27] MEDS: OXYTOCIN DRIP PRE-MIX 500 ML IV SCH ×2 (13:37→14:14)
[2023-04-27] MEDS ORDERED: BENZOCAINE/MENTHOL (DERMOPLAST) 56 ML CAN TP PRN (14:00)
[2023-04-27] MEDS ORDERED: Tetanus/Diphtheria/Pertussis (Acell) ADULT Vaccine 0.5 ML IM ONE (14:00)
[2023-04-27] MEDS ORDERED: WITCH HAZEL(TUCKS) 40 EA JAR TOP PRN (14:00)
[2023-04-27] MEDS ORDERED: CATHETER FLUSH 10 ML SYR IV SCH (14:00)
[2023-04-27] MEDS ORDERED: MEASLES, MUMPS, RUBELLA VACCINE (MMR) SQ ONE (14:00)
[2023-04-27] MEDS ORDERED: DIBUCAINE 1% OINTMENT 28 GM TUBE TOP PRN (14:00)
[2023-04-27] MEDS ORDERED: HYDROcodone/ACETAMINOPHEN 5 MG/325 MG TABLET PO PRN (14:00)
--- NOTE | 2023-04-27 14:01 | OB Labor & Delivery Record ---
L&D History Date of Service Date of Service: Apr 27, 2023 History Expected Date of Delivery: May 08, 2023 Gestational Age in Weeks: 38 Hx : 3 Hx Para: 2 Complications Events: Induced HTN Operative Indications (Cesarea: N/A-Vaginal Delivery Intrapartal Events: None L&D Stage1 Stage One Onset of Labor - Date: Apr 27, 2023 Monitors and Tracing Monitor Mode: External Heart Rate: 140 Station: -1 [facility] Variability: Average (6-10) Short Term Variability: Present Presentation: Vertex Vital Signs VS - Last 72 Hours, by Label 04/26/23 04/26/23 04/26/23 04/26/23 19:16 19:30 19:46 20:01 Temp 36.9 36.9 Pulse 92 92 91 93 Resp 18 18 18 18 B/P (MAP) 131/90 (104) 121/84 (96) 114/82 (93) Pulse Ox 98 98 97 97 O2 Delivery Room Air Room Air Room Air Room Air 04/26/23 04/26/23 04/26/23 04/26/23 20:16 20:30 20:45 21:01 Pulse 93 93 89 88 Resp 18 18 18 18 B/P (MAP) 118/75 (89) 117/78 (91) 122/82 (95) 127/76 (93) O2 Delivery Room Air Room Air Room Air 04/26/23 04/26/23 04/26/23 04/26/23 21:20 21:30 22:36 23:38 Temp 37.2 36.9 Pulse 82 88 88 83 Resp 18 18 18 18 B/P (MAP) 122/86 (98) 121/79 (93) 118/75 (89) 124/72 (89) Pulse Ox 96 97 96 95 O2 Delivery Room Air Room Air Room Air Room Air 04/27/23 04/27/23 04/27/23 04/27/23 00:07 00:37 01:07 01:36 Pulse 85 76 74 76 Resp 18 18 18 18 B/P (MAP) 121/78 (92) 110/69 (83) 129/80 (96) 126/84 (98) Pulse Ox 96 94 94 97 O2 Delivery Room Air Room Air Room Air Room Air 04/27/23 04/27/23 04/27/23 04/27/23 02:07 02:37 03:36 04:07 Temp 36.7 Pulse 77 79 79 75 Resp 18 18 18 18 B/P (MAP) 117/77 (90) 117/77 (90) 120/77 (91) 114/70 (85) Pulse Ox 97 97 97 98 O2 Delivery Room Air Room Air Room Air Room Air 04/27/23 04/27/23 04/27/23 04/27/23 04:37 05:08 05:38 06:09 Temp 35.8 Pulse 77 87 76 88 Resp 18 18 18 18 B/P (MAP) 114/71 (85) 120/86 (97) 131/80 (97) 142/90 (107) Pulse Ox 97 98 98 97 O2 Delivery Room Air Room Air Room Air Room Air 04/27/23 04/27/23 04/27/23 04/27/23 06:10 06:37 07:10 07:15 Temp 36.0 Pulse 80 86 74 Resp 18 18 18 B/P (MAP) 140/84 (102) 137/88 (104) 142/85 (104) Pulse Ox 99 99 98 O2 Delivery Room Air Room Air Room Air 04/27/23 04/27/23 04/27/23 04/27/23 07:35 08:05 08:35 09:03 Pulse 89 89 78 93 B/P (MAP) 123/84 (97) 129/91 (104) 125/81 (96) 132/86 (101) Pulse Ox 98 O2 Delivery Room Air Room Air Room Air Room Air 04/27/23 04/27/23 04/27/23 04/27/23 09:06 09:09 09:13 09:16 Pulse 95 99 95 97 B/P (MAP) 130/84 (99) 133/78 (96) 122/79 (93) 112/65 (81) Pulse Ox 98 97 97 O2 Delivery Room Air Room Air Room Air Room Air 04/27/23 04/27/23 04/27/23 04/27/23 09:19 09:22 09:25 09:28 Pulse 91 88 103 84 B/P (MAP) 114/68 (83) 109/67 (81) 109/65 (80) 126/78 (94) Pulse Ox 96 96 98 98 O2 Delivery Room Air Room Air Room Air Room Air 04/27/23 04/27/23 04/27/23 04/27/23 09:31 09:34 09:37 09:43 Pulse 96 92 101 97 B/P (MAP) 120/64 (82) 131/74 (93) 112/66 (81) 120/65 (83) Pulse Ox 98 98 98 98 O2 Delivery Room Air Room Air Room Air Room Air 04/27/23 04/27/23 04/27/23 04/27/23 09:46 09:50 09:55 10:05 Pulse 86 88 77 86 B/P (MAP) 129/77 (94) 114/71 (85) 118/74 (89) 113/74 (87) Pulse Ox 98 97 98 98 O2 Delivery Room Air Room Air Room Air Room Air 04/27/23 04/27/23 04/27/23 04/27/23 10:20 10:35 10:50 11:05 Temp 36.7 Pulse 90 93 90 80 B/P (MAP) 128/87 (101) 119/74 (89) 114/59 (77) 129/81 (97) Pulse Ox 98 O2 Delivery Room Air Room Air Room Air Room Air 04/27/23 04/27/23 04/27/23 04/27/23 11:20 11:35 11:50 12:05 Temp 36.1 Pulse 85 90 85 98 B/P (MAP) 123/75 (91) 119/74 (89) 129/83 (98) 128/85 (99) O2 Delivery Room Air Room Air Room Air Room Air 04/27/23 04/27/23 04/27/23 04/27/23 12:20 12:35 12:50 13:05 Pulse 87 87 91 86 B/P (MAP) 116/81 (93) 128/75 (92) 138/88 (105) 129/78 (95) O2 Delivery Room Air Room Air Room Air Room Air Rupture of Membranes Amniotic Membrane Rupture Time: 08 Amniotic Membrane Fluid Desc.: Clear Vaginal Bleeding Description: Normal Show Induction/Anesthesia Epidural Cath Placement - Time: 08 Progress/Notes Patient admitted last night for IOL. Misoprostol given overnight. AROM and pitocin augmentation started this am followed by epidural placement. 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 Variability: Average (6-10) Short Term Variability: Present Position: Right Occiput Posterior Presentation: Vertex Cord Descript/Complications Cord Vessel Description: 3 Vessels Delivery Type Delivery Method: Spontaneous Vaginal Anterior Shoulder: Left Episiotomy/Perineal Laceration Laceraction(s)/Extensions: Yes Episiotomy Description: Perineal Extension/lac, 2nd degree Degree (describe repair) laceration repaired using 3-0 rapide suturee Condition of Delivery 1 minute Comment: 8 5 minute Comment: 9 Notes Live female weight 7lbs 4 oz Condition of Condition of : Living Exam: No Observed Abnormalities Resuscitation Resuscitation: N/A - Spontaneous Resp L&D Stage3 Stage Three Stage III Date: Apr 27, 2023 Pictocin Pitocin Administration mu/min: 2 Pitocin ml/hr: 2 Pitocin Administration Comment: 30 mu wide open after delivery of placenta Placenta Delivery Placenta Delivery: Spontaneous Delivery Summary Summary Estimated blood loss (mL): 600 Attending at delivery: Annemarie Dalal DO Condition of Delivery Examined: Cervix Examined, Uterus Explored Post Hemorrhage: Yes Intervention Required Hemabate 250 mcg IM, and 800 mcg Cytotec MA given Condition of Mother stable Condition of Infant (s) stable ANNEMARIE DALAL DO Apr 27, 2023 14:01
[2023-04-27] MEDS: IBUPROFEN 600 MG TABLET PO SCH ×2 (14:51→20:59)
[2023-04-27] MEDS ORDERED: CARBOPROST 250 MCG/ML 1 ML AMPULE IM ONE ×2 (16:27→16:30)
[2023-04-27] MEDS: DOCUSATE SODIUM 100 MG CAPSULE PO SCH (20:59)
[2023-04-28 03:38] VITALS: BP 111/66
[2023-04-28] MEDS: IBUPROFEN 600 MG TABLET PO SCH ×3 (03:38→15:00)
[2023-04-28 06:07] LABS: BASOPHILS % (AUTO) 0 % (0-10); EOSINOPHILS # (AUTO) 0.2 10^3/uL (0.0-0.3); EOSINOPHILS % (AUTO) 2 % (0-10); HEMATOCRIT 31 % (35-52); HEMOGLOBIN 10.5 g/dL (11.5-16.0); LYMPHOCYTES # (AUTO) 1.8 10^3/uL (1.0-4.0); LYMPHOCYTES % (AUTO) 19 % (12-44); MEAN CORPUSCULAR HEMOGLOBIN 32 pg (25-34); MEAN CORPUSCULAR HGB CONC 34 g/dL (32-36); MEAN CORPUSCULAR VOLUME 95 fL (80-99); MONOCYTES # (AUTO) 0.7 10^3/uL (0.0-1.0); MONOCYTES % (AUTO) 7 % (0-12); NEUTROPHILS # (AUTO) 6.6 10^3/uL (1.8-7.8); NEUTROPHILS % (AUTO) 71 % (42-75); PLATELET COUNT 161 10^3/uL (130-400); WHITE BLOOD COUNT 9.3 10^3/uL (4.3-11.0)
--- NOTE | 2023-04-28 06:59 | Postpartum Progress Note ---
RAYNE REVELES Jw 04/28/23 0659: Note Note Day # 1 Subjective: Patient is without complaints. Ambulating, voiding. Tolerating a regular diet without nausea or vomiting. Normal lochia. Pain is well controlled with oral pain medications. . Denies chest pain or shortness of breath. Objective: Laboratory Tests Test 04/28/23 05:45 Range/Units White Blood Count 9.3 4.3-11.0 10^3/uL Red Blood Count 3.27 L 3.80-5.11 10^6/uL Hemoglobin 10.5 L 11.5-16.0 g/dL Hematocrit 31 L 35-52 % Mean Corpuscular Volume 95 80-99 fL Mean Corpuscular Hemoglobin 32 25-34 pg Mean Corpuscular Hemoglobin Concent 34 32-36 g/dL Red Cell Distribution Width 12.6 10.0-14.5 % Platelet Count 161 130-400 10^3/uL Mean Platelet Volume 11.0 9.0-12.2 fL Immature Granulocyte % (Auto) 1 % Neutrophils (%) (Auto) 71 42-75 % Lymphocytes (%) (Auto) 19 12-44 % Monocytes (%) (Auto) 7 0-12 % Eosinophils (%) (Auto) 2 0-10 % Basophils (%) (Auto) 0 0-10 % Neutrophils # (Auto) 6.6 1.8-7.8 10^3/uL Lymphocytes # (Auto) 1.8 1.0-4.0 10^3/uL Monocytes # (Auto) 0.7 0.0-1.0 10^3/uL Eosinophils # (Auto) 0.2 0.0-0.3 10^3/uL Basophils # (Auto) 0.0 0.0-0.1 10^3/uL Immature Granulocyte # (Auto) 0.1 0.0-0.1 10^3/uL Laboratory Tests 04/28/23 05:45 VS - Last 72 Hours, by Label 04/26/23 04/26/23 04/26/23 04/26/23 19:16 19:30 19:46 20:01 Temp 36.9 36.9 Pulse 92 92 91 93 Resp 18 18 18 18 B/P (MAP) 131/90 (104) 121/84 (96) 114/82 (93) Pulse Ox 98 98 97 97 O2 Delivery Room Air Room Air Room Air Room Air 04/26/23 04/26/23 04/26/23 04/26/23 20:16 20:30 20:45 21:01 Pulse 93 93 89 88 Resp 18 18 18 18 B/P (MAP) 118/75 (89) 117/78 (91) 122/82 (95) 127/76 (93) O2 Delivery Room Air Room Air Room Air 04/26/23 04/26/23 04/26/23 04/26/23 21:20 21:30 22:36 23:38 Temp 37.2 36.9 Pulse 82 88 88 83 Resp 18 18 18 18 B/P (MAP) 122/86 (98) 121/79 (93) 118/75 (89) 124/72 (89) Pulse Ox 96 97 96 95 O2 Delivery Room Air Room Air Room Air Room Air 04/27/23 04/27/23 04/27/23 04/27/23 00:07 00:37 01:07 01:36 Pulse 85 76 74 76 Resp 18 18 18 18 B/P (MAP) 121/78 (92) 110/69 (83) 129/80 (96) 126/84 (98) Pulse Ox 96 94 94 97 O2 Delivery Room Air Room Air Room Air Room Air 04/27/23 04/27/23 04/27/23 04/27/23 02:07 02:37 03:36 04:07 Temp 36.7 Pulse 77 79 79 75 Resp 18 18 18 18 B/P (MAP) 117/77 (90) 117/77 (90) 120/77 (91) 114/70 (85) Pulse Ox 97 97 97 98 O2 Delivery Room Air Room Air Room Air Room Air 04/27/23 04/27/23 04/27/23 04/27/23 04:37 05:08 05:38 06:09 Temp 35.8 Pulse 77 87 76 88 Resp 18 18 18 18 B/P (MAP) 114/71 (85) 120/86 (97) 131/80 (97) 142/90 (107) Pulse Ox 97 98 98 97 O2 Delivery Room Air Room Air Room Air Room Air 04/27/23 04/27/23 04/27/23 04/27/23 06:10 06:37 07:10 07:15 Temp 36.0 Pulse 80 86 74 Resp 18 18 18 B/P (MAP) 140/84 (102) 137/88 (104) 142/85 (104) Pulse Ox 99 99 98 O2 Delivery Room Air Room Air Room Air 04/27/23 04/27/23 04/27/23 04/27/23 07:35 08:05 08:35 09:03 Pulse 89 89 78 93 B/P (MAP) 123/84 (97) 129/91 (104) 125/81 (96) 132/86 (101) Pulse Ox 98 O2 Delivery Room Air Room Air Room Air Room Air 04/27/23 04/27/23 04/27/23 04/27/23 09:06 09:09 09:13 09:16 Pulse 95 99 95 97 B/P (MAP) 130/84 (99) 133/78 (96) 122/79 (93) 112/65 (81) Pulse Ox 98 97 97 O2 Delivery Room Air Room Air Room Air Room Air 04/27/23 04/27/23 04/27/23 04/27/23 09:19 09:22 09:25 09:28 Pulse 91 88 103 84 B/P (MAP) 114/68 (83) 109/67 (81) 109/65 (80) 126/78 (94) Pulse Ox 96 96 98 98 O2 Delivery Room Air Room Air Room Air Room Air 04/27/23 04/27/23 04/27/23 04/27/23 09:31 09:34 09:37 09:43 Pulse 96 92 101 97 B/P (MAP) 120/64 (82) 131/74 (93) 112/66 (81) 120/65 (83) Pulse Ox 98 98 98 98 O2 Delivery Room Air Room Air Room Air Room Air 04/27/23 04/27/23 04/27/23 04/27/23 09:46 09:50 09:55 10:05 Pulse 86 88 77 86 B/P (MAP) 129/77 (94) 114/71 (85) 118/74 (89) 113/74 (87) Pulse Ox 98 97 98 98 O2 Delivery Room Air Room Air Room Air Room Air 04/27/23 04/27/23 04/27/23 04/27/23 10:20 10:35 10:50 11:05 Temp 36.7 Pulse 90 93 90 80 B/P (MAP) 128/87 (101) 119/74 (89) 114/59 (77) 129/81 (97) Pulse Ox 98 O2 Delivery Room Air Room Air Room Air Room Air 04/27/23 04/27/23 04/27/23 04/27/23 11:20 11:35 11:50 12:05 Temp 36.1 Pulse 85 90 85 98 B/P (MAP) 123/75 (91) 119/74 (89) 129/83 (98) 128/85 (99) O2 Delivery Room Air Room Air Room Air Room Air 04/27/23 04/27/23 04/27/23 04/27/23 12:20 12:35 12:50 13:05 Pulse 87 87 91 86 B/P (MAP) 116/81 (93) 128/75 (92) 138/88 (105) 129/78 (95) O2 Delivery Room Air Room Air Room Air Room Air 04/27/23 04/27/23 04/27/23 04/27/23 13:20 13:49 13:59 14:04 Pulse 86 90 86 82 Resp 20 B/P (MAP) 121/66 (84) 144/66 (92) 142/80 (100) 136/66 (89) Pulse Ox 96 O2 Delivery Room Air Room Air Room Air Room Air 04/27/23 04/27/23 04/27/23 04/27/23 14:18 14:49 20:30 23:30 Temp 36.2 37.1 36.9 Pulse 88 87 80 89 Resp 20 18 18 B/P (MAP) 135/71 (92) 137/84 (101) 125/65 (85) 101/55 (70) Pulse Ox 98 97 97 O2 Delivery Room Air Room Air Room Air Room Air 04/28/23 03:38 Temp 36.7 Pulse 81 Resp 18 B/P (MAP) 111/66 (81) Pulse Ox 98 O2 Delivery Room Air Physical Exam: General - Alert and oriented, no apparent distress Heart - clear to auscultation without murmur Lungs - clear to auscultation bilaterally without rales, wheezing, or rhonchi Abdomen - Soft, appropriately tender to palpation, non-distended, fundus firm at umbilicus Extremities - no edema, negative Markos's bilaterally Assessment: Post- day # 1, IOL status post vaginal delivery Second degree perineal tear Recovering well, hemodynamically stable 32 yo G3 now P2 at 38 weeks Gestational Hypertension GBS negative Plan: Routine care. Encourage breast feeding. Encourage ambulation. Ferrous sulfate supplementation. Plan for discharge Vitals - Labs Vital Signs - I&O Vital Signs Date Time Temp Pulse Resp B/P (MAP) Pulse Ox O2 Delivery O2 Flow Rate FiO2 04/28/23 03:38 36.7 81 18 111/66 (81) 98 Room Air 04/27/23 23:30 36.9 89 18 101/55 (70) 97 Room Air 04/27/23 20:30 37.1 80 18 125/65 (85) 97 Room Air 04/27/23 14:49 36.2 87 20 137/84 (101) 98 Room Air 04/27/23 14:18 88 135/71 (92) Room Air 04/27/23 14:04 82 136/66 (89) Room Air 04/27/23 13:59 86 20 142/80 (100) 96 Room Air 04/27/23 13:49 90 144/66 (92) Room Air 04/27/23 13:20 86 121/66 (84) Room Air 04/27/23 13:05 86 129/78 (95) Room Air 04/27/23 12:50 91 138/88 (105) Room Air 04/27/23 12:35 87 128/75 (92) Room Air 04/27/23 12:20 87 116/81 (93) Room Air 04/27/23 12:05 98 128/85 (99) Room Air 04/27/23 11:50 85 129/83 (98) Room Air 04/27/23 11:35 36.1 90 119/74 (89) Room Air 04/27/23 11:20 85 123/75 (91) Room Air 04/27/23 11:05 36.7 80 129/81 (97) Room Air 04/27/23 10:50 90 114/59 (77) Room Air 04/27/23 10:35 93 119/74 (89) Room Air 04/27/23 10:20 90 128/87 (101) 98 Room Air 04/27/23 10:05 86 113/74 (87) 98 Room Air 04/27/23 09:55 77 118/74 (89) 98 Room Air 04/27/23 09:50 88 114/71 (85) 97 Room Air 04/27/23 09:46 86 129/77 (94) 98 Room Air 04/27/23 09:43 97 120/65 (83) 98 Room Air 04/27/23 09:37 101 112/66 (81) 98 Room Air 04/27/23 09:34 92 131/74 (93) 98 Room Air 04/27/23 09:31 96 120/64 (82) 98 Room Air 04/27/23 09:28 84 126/78 (94) 98 Room Air 04/27/23 09:25 103 109/65 (80) 98 Room Air 04/27/23 09:22 88 109/67 (81) 96 Room Air 04/27/23 09:19 91 114/68 (83) 96 Room Air 04/27/23 09:16 97 112/65 (81) Room Air 04/27/23 09:13 95 122/79 (93) 97 Room Air 04/27/23 09:09 99 133/78 (96) 97 Room Air 04/27/23 09:06 95 130/84 (99) 98 Room Air 04/27/23 09:03 93 132/86 (101) 98 Room Air 04/27/23 08:35 78 125/81 (96) Room Air 04/27/23 08:05 89 129/91 (104) Room Air 04/27/23 07:35 89 123/84 (97) Room Air 04/27/23 07:15 36.0 04/27/23 07:10 74 18 142/85 (104) 98 Room Air I & O 04/28/23 07:00 Intake Total 1200 ml Balance 1200 ml Labs Laboratory Tests 04/28/23 05:45: White Blood Count 9.3, Red Blood Count 3.27L, Hemoglobin 10.5L, Hematocrit 31L, Mean Corpuscular Volume 95, Mean Corpuscular Hemoglobin 32, Mean Corpuscular Hemoglobin Concent 34, Red Cell Distribution Width 12.6, Platelet Count 161, Mean Platelet Volume 11.0, Immature Granulocyte % (Auto) 1, Neutrophils (%) (Auto) 71, Lymphocytes (%) (Auto) 19, Monocytes (%) (Auto) 7, Eosinophils (%) (Auto) 2, Basophils (%) (Auto) 0, Neutrophils # (Auto) 6.6, Lymphocytes # (Auto) 1.8, Monocytes # (Auto) 0.7, Eosinophils # (Auto) 0.2, Basophils # (Auto) 0.0, Immature Granulocyte # (Auto) 0.1 MICHEAL DALAL DO 04/28/23 0707: Note Note Verification and Attestation of Medical Student E/M Service A medical student performed and documented this service in my presence. I reviewed and verified all information documented by the medical student and made modifications to such information, when appropriate. I personally performed the physical exam and medical decision making. Micheal Dalal, Apr 28, 2023,07:07 RAYNE REVELES Apr 28, 2023 06:59 MICHEAL DALAL DO Apr 28, 2023 07:07
[2023-04-28] MEDS ORDERED: PRENATAL VITAMIN TABLET PO SCH (07:00)
[2023-04-28] MEDS ORDERED: RHO(D) IMMUNE GLOBULIN 300 MCG/2 ML SYRINGE IM/IV ONE ×2 (08:00)
[2023-04-28] MEDS ORDERED: FERROUS SULFATE 325 MG (IRON) TABLET PO SCH (09:00)
[2023-04-28] MEDS: DOCUSATE SODIUM 100 MG CAPSULE PO SCH (09:08)
[2023-04-28 09:10] VITALS: BP 117/73
--- NOTE | 2023-04-28 10:13 | Discharge Inst-Women's Service ---
Discharge Inst-Women's Serv Depart Medication/Instructions New, Converted or Re-Newed RX: Transmitted to Pharmacy Final Diagnosis PPD1 NVD Problems Reviewed?: Yes Consults/Follow Up Additional Follow Up: Yes Orders/Referrals Dr. Dalal in 6 weeks Activity Activity: Activity as Tolerated Driving Instructions: No Driving for 1 Week NO SMOKING: NO SMOKING Nothing Inside Vagina: No Douching, No Dish, No Tampons Diet Discharge Diet: No Restrictions Symptoms to Report to : Bleeding Excessive, Pain Increased, Fever Over 101 Degrees F, Vaginal Bleeding Increase, Questions/Concerns For Any Problems or Questions: Contact Your Physician ANNEMARIE DALAL DO Apr 28, 2023 10:13
[2023-04-28] MEDS ORDERED: DOCU100C37 PO (10:15)
[2023-04-28] MEDS ORDERED: IBUP-844 PO (10:15)
[2023-04-28] MEDS ORDERED: DIBU30OI TOP (10:15)
[2023-04-28] MEDS ORDERED: BENZ78AE5 TP (10:15)
[2023-04-28] MEDS ORDERED: FERR325T24 PO (10:15)
[2023-04-28] MEDS ORDERED: ACHD5005 PO (10:15)
[2023-04-28 13:00] VITALS: BP 118/76
[2023-04-28] MEDS ORDERED: RHO(D) IMMUNE GLOBULIN 300 MCG/2 ML SYRINGE ONE (14:56)
--- NOTE | 2023-05-01 12:08 | Anesthesia-Regional Post-Op ---
Regional Patient Condition Mental Status: Alert, Oriented x3 Circulation: Same as Pre-Op Headache: Absent Sensation: Full Recovery Motor Block: Absent Post Op Complications Complications None Follow Up Care/Instructions Patient Instructions None needed. Anesthesia/Patient Condition Patient is discharged to home but she was doing well prior to her discharge to home per nursing staff. She had no complaints, stable vital signs, no apparent adverse anesthesia problems. No complications reported per nursing. ANNALEE SÁNCHEZ DO May 01, 2023 12:08
== END 2023-04-28 16:15 | disposition home or self-care (01) | DRG 807 ==
LOC: LDRP 04-26 18:53
PROVIDERS: ADMIT Obstetrics & Gynecology; ATTEND Obstetrics & Gynecology
PROC: 10E0XZZ Delivery of Products of Conception, External Approach (ICD-10-PCS; principal; 2023-04-27)
PROC: 0KQM0ZZ Repair Perineum Muscle, Open Approach (ICD-10-PCS; 2023-04-27)
PROC: 10907ZC Drainage of Amniotic Fluid, Therapeutic from Products of Conception, Via Natural or Artificial Opening (ICD-10-PCS; 2023-04-27)
DX: O13.4 Gestational [pregnancy-induced] hypertension without significant proteinuria, complicating childbirth (principal); Z37.0 Single live birth; Z3A.38 38 weeks gestation of pregnancy
CPT/HCPCS: 36415; 80053; 81000; 82570; 83033; 84156; 84550; 85025; 86780; 86850; 86900; 86901